=== PATIENT | female | born 2000 | race Caucasian/White ===

== ENCOUNTER → 2019-07-04 09:01 | Outpatient (BNVA) | payer MEDICAID, SELFPAY | PROVIDERS: Family Provider Nurse Practitioner Family; PCP Nurse Practitioner Family; Referring Provider Family Medicine; Visit Provider Orthopaedic Surgery | DX: M25.561 Pain in right knee (principal); G89.29 Other chronic pain | CPT/HCPCS: 73560; 73565 ==

== ENCOUNTER 2020-03-13 13:04 | Outpatient (CLI) | payer MEDICAID, SELFPAY ==
--- NOTE | 2020-03-13 13:00 | MR_ITS ---
WS: [id number] MRI RIGHT KNEE HISTORY: M25.569 Pain in unspecified knee COMPARISON: 07/04/2019 Anterior cruciate ligament: Intact. Posterior cruciate ligament: Intact. Medial collateral ligament: Intact. Posterior lateral corner structures: Intact. Medial menisci: Intact. Normal signal, size and shape. Lateral meniscus: Abnormal shape and signal in the anterior horn. Very small caliber anterior horn. Extensor mechanism: Distal quadriceps tendon and patellar tendons are intact. Fluid and soft tissue: Small amount of fluid in the suprapatellar bursa and around the condyles. Tiny amount of fluid in Sam's cyst. Osseous and articular structures: Patellofemoral compartment: Normal. Medial compartment: Normal. Lateral compartment: Normal. MR/MR knee RT wo con* [id number] IMPRESSION: 1. Small suprapatellar joint effusion. 2. Abnormal shape and signal in the anterior horn of the lateral meniscus. Due to the abnormal appearance suspect this is a torn meniscus. No meniscal fragme nt identified. The remaining menisci are negative.
== END 2020-03-13 13:05 | disposition home or self-care (01) ==
LOC: RADSHAW 13:08
PROVIDERS: PCP Physician Assistant Medical; Visit Provider Orthopaedic Surgery
DX: M25.561 Pain in right knee (principal); M25.461 Effusion, right knee
CPT/HCPCS: 73721

== ENCOUNTER → 2020-04-20 09:12 | Outpatient (BNVA) | payer MEDICAID, SELFPAY | PROVIDERS: PCP Physician Assistant Medical; Referring Provider Orthopaedic Surgery; Visit Provider Orthopaedic Surgery | DX: Z20.828 Contact with and (suspected) exposure to other viral communicable diseases (principal) | CPT/HCPCS: 87635 ==

== ENCOUNTER 2020-04-25 06:29 | Day surgery (SDC) | payer MEDICAID, SELFPAY ==
[2020-04-24 15:17] VITALS: BMI 21.6
[2020-04-25] VITALS (7 sets, daily range): BP systolic 90–119; BP diastolic 50–81; PULSE 64–85; RESP 16–18; TEMP 36.2–36.6; O2SAT 97–100
[2020-04-25 06:47] LABS: OR HCG Qualitative Urine Negative (Negative)
[2020-04-25] MEDS: sodium chloride 0.9% 1,000 ML 30 ML IV (06:59)
--- NOTE | 2020-04-25 07:45 | ANES.PREANE2 ---
Pre-Anesthetic Assessment Pre-Anesthetic Assessment: Height/Weight: Height 1.63 m Weight 57.153 kg Temp Pulse Resp BP Pulse Ox 97.6 F 81 18 119/81 97 04/25/20 06:50 04/25/20 06:50 04/25/20 06:50 04/25/20 06:50 04/25/20 06:50 Preop Diagnosis: Right lateral meniscal tear Proposed Procedure: Operation Date: 04/25/20 08:00 Proposed Procedures p Diagnostic Knee Arthroscopy 26222 S83.281D(Right) - Jethro Arce MD Was Beta Annemarie taken within 24 hours: N/A Last intake: Intake Last Liquid Date 04/24/20 Last Liquid Time 19:00 Last Solid Date 04/24/20 Last Solid Time 19:00 Social: Social History: No alcohol and No tobacco Exam: Pre-Anes Outpt Exam: alert, oriented x 3, clear to auscultation bilaterally and regular rate & rhythm Airway: Submandibular: WNL Cervical ROM: WNL MP: 2 Additional comments: poor History/ROS: No significant history except as noted Pulmonary: Pulmonary: None reported CV/HEM: CV/HEM: None reported : : None reported Hepatic: Hepatic: None reported GI: GI: GERD Metabolic: Metabolic: None reported Musc/skel: Musc/skel: None reported Neuropsych: Neuropsych: None reported Anesthetic Plan: ASA status: 1 Anesthesia: Anesthesia Evaluation and General Risk of > 500 ml blood loss (7ml/kg in children): No Meds/Allergies Current Medications: Current Medications Generic Name Dose Route Start Last Admin Trade Name Freq PRN Reason Stop Dose Admin Sodium Chloride 1,000 mls @ 30 ml s/hr 04/25/20 06:45 04/25/20 06:59 Sodium Chloride 0.9% IV 04/26/20 06:44 30 mls/hr .Q24H JESSICA Administration PFSH Anesthesia PFSH: Social History Smoking and tobacco status: never smoked Alcohol intake: never Female Reproductive History: Date of last menstrual period: 10/31/19 Data Anesthesia Other Labs: Laboratory Results - last 48 hr 04/25/20 06:45 Urine HCG, Qual Negative Cardiac Studies: No Data to Display
--- NOTE | 2020-04-25 07:53 | W.PM.OPSUD ---
Surgery/Procedure H&P Update DATE OF PROCEDURE: April 25, 2020 DATE H&P PERFORMED: 03/26/20 PREOP DIAGNOSIS: Right lateral meniscal tear PLANNED PROCEDURE: Operation Date: 04/25/20 08:00 Proposed Procedures p Diagnostic Knee Arthroscopy 92906 S83.281D(Right) - Jethro Arce MD
[2020-04-25] MEDS: morphine 4 mg/mL SDV 1 mL 8 MG IM (08:12)
--- NOTE | 2020-04-25 08:49 | SUR.PHASEI ---
pt sleeps quietly ,recieved on RA, vss sats 99% good resp effort noted RT knee dressing D/I with distal foot pink warm with strong regular pulse.
--- NOTE | 2020-04-25 08:54 | PM.OP ---
Operative Report Date of procedure: April 25, 2020 Pre-op Diagnosis: Right lateral meniscal tear Post-op diagnosis: same Post-op Findings: The patient had a complex horizontal cleavage tear of her middle third lateral meniscus Procedure Done: Partial lateral menisci Pathology: none sent Surgeon: Jethro Arce Anesthesia: General Estimated blood loss (mL): 5 Findings: The patient had a complex horizontal cleavage tear involving the middle third of the lateral meniscus. There was diminished meniscal volume consistent with a previous lateral meniscectomy. It was estimated approximately 30% of the middle and posterior third lateral meniscus remained after debridement to stable tissue the tear was a dysvascular and she was not thought to be a candidate for repair Condition: stable Disposition: PACU Procedure: The patient was taken to the operating room and given a general anesthesia. The right lower extremity was prepped and draped in the usual fashion with a tourniquet on the right thigh. The tourniquet was never inflated. The knee was infiltrated with 30 cc of 0.5% Marcaine with epi and 10 mg of morphine. A timeout was performed. The knee was entered for standard inferior medial and inferolateral portal. The diagnostic part of the arthroscopy was performed revealing only the lateral meniscal tear. Initially using an incisor shaver and later a [employer] probe unstable degenerative superior and inferior flaps were debrided back to a stable rim. This involved debridement in the middle and posterior thirds of the lateral meniscus and left approximately 30% of the meniscus remaining. The remaining knee arthroscopy is unremarkable. Knee was irrigated with saline. Portals were closed with 3-0 Prolene. Sterile dressings were applied. The patient was extubated and taken to recovery room in stable condition.
== END 2020-04-25 10:10 | disposition home or self-care (01) ==
PROVIDERS: PCP Physician Assistant Medical; Visit Provider Orthopaedic Surgery
PROC: (CPT 29870; principal; 2020-04-25 08:00)
DX: S83.281A Other tear of lateral meniscus, current injury, right knee, initial encounter (principal); X58.XXXA Exposure to other specified factors, initial encounter; K21.9 Gastro-esophageal reflux disease without esophagitis
CPT/HCPCS: 29881; 12345; 81025; 84703; J0690; J1100; J2270; J2405; J2704; J3010; J3490; J7030

== ENCOUNTER 2020-06-24 14:26 | Outpatient (CLI) | payer MEDICAID, SELFPAY ==
--- NOTE | 2020-06-24 14:45 | MR_ITS ---
WS: [id number] MRI LEFT KNEE HISTORY: M25.569 - Pain in unspecified knee COMPARISON: 06/21/2018 Anterior cruciate ligament: Intact. Posterior cruciate ligament: Intact. Medial collateral ligament: Intact. Posterior lateral corner structures: Intact. Medial menisci: Intact. Normal signal, size and shape. Lateral meniscus: Status post partial lateral meniscectomy. There is a small amount of increased sign al centrally within the posterior remaining meniscus. This does not extend completely through the men iscus and is probably intrasubstance degeneration. There is some fraying along the surfaces of the po sterior horn. No appreciable anterior horn remains. Extensor mechanism: Distal quadriceps tendon and patellar tendons are intact. Fluid and soft tissue: There is a small suprapatellar joint effusion. Very tiny amount of fluid in th e popliteal cyst. Osseous and articular structures: Patellofemoral compartment: Normal. Medial compartment: There is a very small amount of marrow edema along the lateral tibial plateau inv olving the metaphysis that was not present on the prior study. No fracture. No osteochondral lesion. Lateral compartment: Very mild narrowing of the joint space. Focal thinning of the cartilage at the m id joint space involving the femoral condyle and tibial plateau. This is new since the prior study. MR/MR knee LT wo con* [id number] IMPRESSION: 1. Small suprapatellar joint effusion. 2. Very small amount of marrow edema along the medial tibial metaphysis. No fr acture. 3. Partial lateral meniscectomy. 4. Mild fraying along the remaining posterior horn of the lateral meniscus wit h no definite tear. 5. Mild narrowing of the lateral compartment with thinning and mild loss of th e normal cartilage.
== END 2020-06-24 14:27 | disposition home or self-care (01) ==
PROVIDERS: PCP Physician Assistant Medical; Visit Provider Orthopaedic Surgery
DX: M25.562 Pain in left knee (principal); R60.0 Localized edema; M25.462 Effusion, left knee
CPT/HCPCS: 73721

== ENCOUNTER 2020-09-19 21:00 | Emergency (ER) | payer MEDICAID, SELFPAY ==
[2020-09-19 21:25] VITALS: BP 119/78; PULSE 106; RESP 16; TEMP 36.9; O2SAT 98; BMI 21.6
--- NOTE | 2020-09-19 22:11 | ED_ITS ---
HPI - Abdominal Pain General: Chief Complaint: Abdominal Pain Stated Complaint: ABD PAIN Time Seen by Provider: 09/19/20 22:11 History of Present Illness: HPI narrative: Patient is a 19-year-old female comes to the ED with abdominal pain. Patient says symptoms started approximately 3 days ago. Abdominal pain is centrally located. Patient does state that she has a history of acid reflux and says just before pain started she had eaten some spicy cheese. Patient rates her abdominal pain a 10 out of 10. Patient does endorse having some increased urine frequency and urgency to go. Denies any dysuria or hematuria. Associated Symptoms: Reports heartburn; Denies chills, constipation, diarrhea, dysuria, fever(s), hematochezia, hematuria, nausea and vomiting Related Data: Date of Last Menstrual Period: 08/29/20 Review of Systems Const: Denies: fever(s), chills or fatigue Eyes: Denies: change in vision or eye discomfort ENMT: Denies: throat pain, odynophagia, nasal discharge or nasal congestion Card: Denies: chest pain, palpitations, edema, swelling of feet/ankles, dyspnea on exertion or orthopnea Resp: Denies: dyspnea, productive cough or non-productive cough GI: Reports: abdominal pain and heartburn; Denies: nausea, vomiting, diarrhea, constipation or hematochezia : Reports: urinary frequency (increase) and urinary urgency (increase); Denies: flank pain, dysuria or hematuria Musc: Denies: neck pain, back pain or extremity swelling Skin/Breast: Denies: rash or new lesions Neuro: Denies: headache(s), numbness in extremities or weakness in extremities [facility] ED PFSH: Social History Smoking and tobacco status: never smoked Alcohol intake: never Female Reproductive History: Date of last menstrual period: 08/29/20 Physical Exam Const: COMMON NORMALS: no acute distress, patient oriented x3, healthy appearing and alert GENERAL APPEARANCE: cooperative and comfortable HENMT: COMMON NORMALS: normocephalic HEAD & SCALP: normocephalic MOUTH: Normal oral and palatal mucosa present THROAT: posterior oropharynx normal and uvula midline Neck/C-Spine: COMMON NORMALS: supple GENERAL: Yes normal visual inspection Resp: COMMON NORMALS: normal respiratory effort, No retractions, No use of accessory muscles and clear to auscultation bilaterally AUSCULTATION: clear to auscultation bilaterally Cardio: COMMON NORMALS: regular rate, regular rhythm, S1 normal heart sound present, S2 normal heart sound present, No gallops present (Cardio), No clicks present (Cardio), No murmurs present (Cardio) and Peripheral pulses 2+ throughout RATE: regular rate RHYTHM: regular rhythm HEART SOUNDS: S1 normal heart sound present and S2 normal heart sound present PERIPHERAL PULSES: Peripheral pulses 2+ throughout GI: COMMON NORMALS: Normal to inspection, nondistended, normoactive bowel sounds present, Soft to palpation and no masses PALPATION: Yes Soft to palpation and Yes Tenderness to palpation present (GI) (Mild tenderness over the periumbilical region and epigastric region.) : COMMON NORMALS: Yes no CVA tenderness BLADDER/KIDNEY EXAM: Yes no CVA tenderness Back/Pelvis: COMMON NORMALS: no CVA tenderness Extremity: COMMON NORMALS: normal to inspection Neuro: COMMON NORMALS: patient oriented x3 SENSORIUM/ORIENTATION: Yes alert GAIT: Yes Normal gait present Skin: GENERAL SKIN EXAM: dry skin Course Vital Signs: Vital signs: Vital Signs Temperature 98.4 F 09/19/20 21:25 Pulse Rate 74 09/20/20 00:32 Respiratory Rate 18 09/20/20 00:32 Blood Pressure 106/59 09/20/20 00:32 Pulse Oximetry 98 09/20/20 00:32 MDM - Abdominal Pain MDM Narrative: Medical decision making narrative: Patient is a 19-year-old female comes to the ED with abdominal pain. She is also complaining of having some urine frequency and urine urgency. She denies any other symptoms. Patient appears nontoxic and in no acute distress or pain upon exam. She did have some tenderness to the epigastric region and periumbilical region of abdomen. White blood cell count 13.1 but the rest of CBC and CMP were unremarkable. hCG negative. urinalysis showed signs of UTI. Patient was given IV fluids, Zofran, morphine and GI cocktail and her symptoms greatly improved. Patient was discharged home and diagnosed with gastritis and a UTI. Patient currently takes Protonix for her acid reflux symptoms and I told her to continue taking that. I discharged her home with a prescription for Bactrim for her UTI. I told her to follow-up with her PCP in 7 to 10 days for reevaluation. Return to ED precautions given. Patient understood agree with plan. Lab Data: Attestation: I reviewed the patient's lab results. Labs: Lab Results 09/19/20 09/19/20 09/19/20 Range/Units 22:15 22:15 22:15 WBC 13.1 H (4.0-10.0) 10^3/ uL RBC 5.13 (4.1-5.3) 10^6/u L Hgb 14.2 (11.5-15.3) g/dL Hct 43.9 (37.0-47.0) % MCV 85.6 (81-99) fL MCH 27.7 L (28.0-34.0) pg MCHC 32.3 (30.0-36.0) g/dL RDW 12.7 (12.1-15.1) % Plt Count 341 (130-400) 10^3/c mm MPV 9.3 (7.4-10.4) fL Neut % (Auto) 74.6 % Lymph % (Auto) 17.4 % [place] % (Auto) 5.0 % Eos % (Auto) 2.0 % Baso % (Auto) 0.6 % Neut # (Auto) 9.74 H (1.8-7.7) 10^3/u L Lymph # (Auto) 2.3 (0.8-4.8) 10^3/u L Clarion # (Auto) 0.7 (0.2-0.9) 10^3/u L Eos # (Auto) 0.3 (0.0-0.8) 10^3/u L Baso # (Auto) 0.1 (0.0-0.1) 10^3/u L Nucleated RBC % (a uto) 0 % Nucleated RBCs # 0.0 /100WBC Sodium 136 (136-145) mmol/L Potassium 3.8 (3.5-5.1) mmol/L Chloride 102 (98-107) mmol/L Carbon Dioxide 27 (22-29) mmol/L Anion Gap 10.8 (5-19) BUN 11 (6-20) mg/dL Creatinine 0.5 (0.5-0.9) mg/dL GFR Calculation 155.7 H (90-130) mL/min Glucose 98 (65-115) mg/dL Calculated Osmolal ity 281 L (285-295) mOsm/k g Calcium 8.8 (8.5-10.5) mg/dL Total Bilirubin 0.2 (0.15-1.2) mg/dL AST 31 (0-32) U/L ALT 42 H (0-33) U/L Alkaline Phosphata se 89 (35-105) IU/L Total Protein 7.5 (6.6-8.7) g/dL Albumin 4.4 (3.5-5.2) g/dL Globulin 3.1 (1.3-4.6) g/dL Lipase 21 (13-60) U/L HCG, Qual Negative (Negative) Urine Color (Yellow) Urine Appearance (CLEAR) Urine pH (5-7) Ur Specific Gravit y (1.005-1.030) Urine Protein (Negative) Urine Glucose (UA) (Normal) Urine Ketones (Negative) Urine Blood (Negative) Urine Nitrate (Negative) Urine Bilirubin (Negative) Urine Urobilinogen (Negative) mg/dL Ur Leukocyte Mae ase (Negative) Urine RBC (0-2) /hpf Urine WBC (0-5) /hpf Ur Squamous Epith Cells (0-5) /hpf Amorphous Sediment Urine Bacteria (NONE) /hpf 09/19/20 Range/Units 22:15 WBC (4.0-10.0) 10^3/ uL RBC (4.1-5.3) 10^6/u L Hgb (11.5-15.3) g/dL Hct (37.0-47.0) % MCV (81-99) fL MCH (28.0-34.0) pg MCHC (30.0-36.0) g/dL RDW (12.1-15.1) % Plt Count (130-400) 10^3/c mm MPV (7.4-10.4) fL Neut % (Auto) % Lymph % (Auto) % Clarion % (Auto) % Eos % (Auto) % Baso % (Auto) % Neut # (Auto) (1.8-7.7) 10^3/u L Lymph # (Auto) (0.8-4.8) 10^3/u L Clarion # (Auto) (0.2-0.9) 10^3/u L Eos # (Auto) (0.0-0.8) 10^3/u L Baso # (Auto) (0.0-0.1) 10^3/u L Nucleated RBC % (a uto) % Nucleated RBCs # /100WBC Sodium (136-145) mmol/L Potassium (3.5-5.1) mmol/L Chloride (98-107) mmol/L Carbon Dioxide (22-29) mmol/L Anion Gap (5-19) BUN (6-20) mg/dL Creatinine (0.5-0.9) mg/dL GFR Calculation (90-130) mL/min Glucose (65-115) mg/dL Calculated Osmolal ity (285-295) mOsm/k g Calcium (8.5-10.5) mg/dL Total Bilirubin (0.15-1.2) mg/dL AST (0-32) U/L ALT (0-33) U/L Alkaline Phosphata se (35-105) IU/L Total Protein (6.6-8.7) g/dL Albumin (3.5-5.2) g/dL Globulin (1.3-4.6) g/dL Lipase (13-60) U/L HCG, Qual (Negative) Urine Color Yellow (Yellow) Urine Appearance Clear (CLEAR) Urine pH 5 (5-7) Ur Specific Gravit y 1.020 (1.005-1.030) Urine Protein Neg (Negative) Urine Glucose (UA) Norm (Normal) Urine Ketones Negative (Negative) Urine Blood 3+ H (Negative) Urine Nitrate Negative (Negative) Urine Bilirubin 1+ H (Negative) Urine Urobilinogen Norm (Negative) mg/dL Ur Leukocyte Mae ase Negative (Negative) Urine RBC 5-10 H (0-2) /hpf Urine WBC 40-55 H (0-5) /hpf Ur Squamous Epith Cells 10-15 H (0-5) /hpf Amorphous Sediment Not Reportable Urine Bacteria 1+ H (NONE) /hpf Imaging Data ^: CT Abd/Pel: Attestation: I personally reviewed and interpreted this imaging study as follows: Radiologist's impression: [address] [address] [address] Scan Report Signed Patient: Evelyne Biggs [id number] 2000 [id number] Age/Sex: 19 / F ADM Date: 09/19/20 Loc: ER Room/Bed: Attending Dr: Ordering Provider/Ordering MD: Miquel Leong Date of Service: 09/19/20 Procedure(s): CT abdomen pelvis w con* [id number] Accession Number(s): [id number] Report Number: [id number] PROCEDURE INFORMATION: Exam: CT Abdomen And Pelvis With Contrast Exam date and time: 09/19/2020 11:16 PM Age: 19 years old Clinical indication: Abdominal pain; Patient HX: Periumbilical pain; Additional info: Abdominal pain-periumbilical TECHNIQUE: Imaging protocol: Computed tomography of the abdomen and pelvis with contrast. Radiation optimization: All CT scans at this facility use at least one of these dose optimization techniques: automated exposure control; mA and/or kV adjustment per patient size (includes targeted exams where dose is matched to clinical indication); or iterative reconstruction. Contrast material: OMNI 300; Contrast volume: 75 ml; Contrast route: INTRAVENOUS (IV); COMPARISON: CT Abdomen/Pelvis Renal [id number] 09/29/2018 4:08 PM RADIATION DOSE METRICS: Total DLP (mGy-cm): 868.31 FINDINGS: Liver: Normal. No mass. Gallbladder and bile ducts: Normal. No calcified stones. No ductal dilation. Pancreas: Normal. No ductal dilation. Spleen: Normal. No splenomegaly. Adrenal glands: Normal. No mass. Kidneys and ureters: Normal. No hydronephrosis. Stomach and bowel: Unremarkable. No obstruction. No mucosal thickening. Appendix: The appendix is not confidently seen, but there are no secondary inflammatory changes in the right lower quadrant of the abdomen. Intraperitoneal space: Unremarkable. No free air. No significant fluid collection. Vasculature: Unremarkable. No abdominal aortic aneurysm. Lymph nodes: Unremarkable. No enlarged lymph nodes. Urinary bladder: Unremarkable as visualized. Reproductive: Unremarkable as visualized. Bones/joints: Unremarkable. No acute fracture. Soft tissues: Unremarkable. CT/CT abdomen pelvis w con* [id number] IMPRESSION: 1. No acute findings. 2. The appendix is not confidently seen, but there are no secondary inflammatory soft tissue changes in the right lower quadrant the abdomen. Radiation Dose CTDIVOL = (mGy): DLP = 868.31 (mGy-cm) Dictated By: Matt Tarango Signed By: Matt Tarango Signed Date/Time: 09/19/202358 DD/ 56 Discharge Plan Discharge Patient Disposition: Home Clinical Impression: Gastritis Qualifiers: Gastritis type: unspecified gastritis Chronicity: acute Gastritis bleeding: without bleeding Qualified Code(s): K29.00 - Acute gastritis without bleeding UTI (urinary tract infection) Qualifiers: Urinary tract infection type: acute cystitis Hematuria presence: with hematuria Qualified Code(s): N30.01 - Acute cystitis with hematuria Condition: Stable Prescriptions: New Bactrim DS 800-160 mg tablet 1 tab PO BID 5 Days Qty: 10 RF: 0 No Action pantoprazole [Protonix] 40 mg tablet,delayed release (DR/EC) 40 mg PO BID Qty: 60 RF: 0 hydrocodone-acetaminophen 5-325 mg tablet 1 tab PO Q4H Qty: 30 RF: 0 Discharge Orders: Discharge ED (Routine); Ordered 09/20/20 Ordered By: Miquel Leong Referrals: Delbert Luther [Primary Care Provider] - Discharge Diet: Regular Discharge Activity: Resume usual activity Patient Instructions: Gastritis (ED), Urinary Tract Infection in Women (ED) Activity Restrictions/Additional Instructions: Follow-up with medical provider as directed in 7 to 10 days for reevaluation. Take medications as prescribed. Return to the ER or your medical provider if condition worsens. Please read and understand discharge instructions. Thank you for choosing [facility] for your healthcare needs today. Please realize this is an emergency room and that we are providing you with a medical screening exam and this may not be complete and all inclusive of all the testing and or work up that you may need to determine your ailment or severity of your illness. It is very important that you follow up as instructed or that you return to the Emergency Department should you have concerns or if your condition changes or worsens in any way. Coding Level of Care Code ED Organisation And Methods Analyst for Darinel Fwana Exam Comprehensive
[2020-09-19 22:43] LABS: Basophils # 0.1 10^3/uL (0.0-0.1); Basophils % 0.6 %; Eosinophils # 0.3 10^3/uL (0.0-0.8); Hematocrit 43.9 % (37.0-47.0); Hemoglobin 14.2 g/dL (11.5-15.3); Lymphocytes # 2.3 10^3/uL (0.8-4.8); Lymphocytes % 17.4 %; Mean Corpuscular HGB Conc 32.3 g/dL (30.0-36.0); Mean Corpuscular Hemoglobin 27.7 pg (28.0-34.0); Mean Corpuscular Volume 85.6 fL (81-99); Mean Platelet Volume 9.3 fL (7.4-10.4); Monocytes # 0.7 10^3/uL (0.2-0.9); Neutrophils # 9.74 10^3/uL (1.8-7.7); Neutrophils % 74.6 %; Nucleated Red Blood Cells % 0 %; Platelet Count 341 10^3/cmm (130-400); Red Blood Count 5.13 10^6/uL (4.1-5.3); Red Cell Distribution Width 12.7 % (12.1-15.1); White Blood Count 13.1 10^3/uL (4.0-10.0)
--- NOTE | 2020-09-19 22:50 | CTR_ITS ---
PROCEDURE INFORMATION: Exam: CT Abdomen And Pelvis With Contrast Exam date and time: 09/19/2020 11:16 PM Age: 19 years old Clinical indication: Abdominal pain; Patient HX: Periumbilical pain; Additional info: Abdominal pain-periumbilical TECHNIQUE: Imaging protocol: Computed tomography of the abdomen and pelvis with contrast. Radiation optimization: All CT scans at this facility use at least one of these dose optimization techniques: automated exposure control; mA and/or kV adjustment per patient size (includes targeted exams where dose is matched to clinical indication); or iterative reconstruction. Contrast material: OMNI 300; Contrast volume: 75 ml; Contrast route: INTRAVENOUS (IV); COMPARISON: CT Abdomen/Pelvis Renal [id number] 09/29/2018 4:08 PM RADIATION DOSE METRICS: Total DLP (mGy-cm): 868.31 FINDINGS: Liver: Normal. No mass. Gallbladder and bile ducts: Normal. No calcified stones. No ductal dilation. Pancreas: Normal. No ductal dilation. Spleen: Normal. No splenomegaly. Adrenal glands: Normal. No mass. Kidneys and ureters: Normal. No hydronephrosis. Stomach and bowel: Unremarkable. No obstruction. No mucosal thickening. Appendix: The appendix is not confidently seen, but there are no secondary inflammatory changes in the right lower quadrant of the abdomen. Intraperitoneal space: Unremarkable. No free air. No significant fluid collection. Vasculature: Unremarkable. No abdominal aortic aneurysm. Lymph nodes: Unremarkable. No enlarged lymph nodes. Urinary bladder: Unremarkable as visualized. Reproductive: Unremarkable as visualized. Bones/joints: Unremarkable. No acute fracture. Soft tissues: Unremarkable. CT/CT abdomen pelvis w con* [id number] IMPRESSION: 1. No acute findings. 2. The appendix is not confidently seen, but there are no secondary inflammatory soft tissue changes in the right lower quadrant the abdomen. Radiation Dose CTDIVOL = (mGy): DLP = 868.31 (mGy-cm)
[2020-09-19 22:52] LABS: Alanine Aminotransferase 42 U/L (0-33); Albumin Level 4.4 g/dL (3.5-5.2); Alkaline Phosphatase 89 IU/L (35-105); Anion Gap 10.8 (5-19); Aspartate Amino Transferase 31 U/L (0-32); Blood Urea Nitrogen 11 mg/dL (6-20); Calcium 8.8 mg/dL (8.5-10.5); Carbon Dioxide 27 mmol/L (22-29); Chloride 102 mmol/L (98-107); Globulin 3.1 g/dL (1.3-4.6); Glomerular Filtration Rate 155.7 mL/min (90-130); Glucose 98 mg/dL (65-115); Lipase 21 U/L (13-60); Osmolality Calculated 281 mOsm/kg (285-295); Potassium 3.8 mmol/L (3.5-5.1); Sodium 136 mmol/L (136-145); Total Bilirubin 0.2 mg/dL (0.15-1.2); Total Protein 7.5 g/dL (6.6-8.7)
[2020-09-19 23:08] VITALS: RESP 18; O2SAT 97
[2020-09-19] MEDS: ondansetron 2 mg/ML SDV 2 mL 4 MG IVP (23:08)
[2020-09-19] MEDS: morphine 4 mg/mL SDV 1 mL IVP (23:08)
[2020-09-19] MEDS: sodium chloride 0.9% 500 ML 999 ML IV (23:08)
[2020-09-19 23:13] LABS: Bacteria Urine 1+ /hpf; Bilirubin Urine 1+ (Negative); Blood Urine 3+ (Negative); Glucose Urine UA Norm (Normal); HCG, Serum Qual Negative (Negative); Ketones Urine Negative (Negative); Leukocyte Esterase Urine Negative (Negative); Nitrate Urine Negative (Negative); Protein Urine Neg (Negative); Urine Appearance Clear (CLEAR); Urine Color Yellow (Yellow); Urobilinogen Urine Norm (Negative); WBC Urine 40-55 /hpf (0-5); pH Urine 5 (5-7)
[2020-09-19 23:14] LABS: Add Urine Culture? Yes
[2020-09-19] MEDS: iohexol 300 mg/mL 100 mL Btl IV (23:31)
[2020-09-20] MEDS: lidocaine 2% viscous 15 ML, aluminum-mag hydrox-simethicon 30 ML, sucralfate oral liq 1 GM PO (00:19)
[2020-09-20 00:32] VITALS: BP 106/59; PULSE 74; RESP 18; O2SAT 98
== END 2020-09-20 00:33 | disposition home or self-care (01) ==
PROVIDERS: Emergency Provider Physician Assistant; PCP Physician Assistant Medical
DX: K29.00 Acute gastritis without bleeding (principal); N30.01 Acute cystitis with hematuria
CPT/HCPCS: 74177; 80053; 81001; 83690; 84703; 85025; 87086; 96374; 96375; 99283; J2270; J2405; J7040; Q9967

== ENCOUNTER 2020-09-20 22:08 | Emergency (ER) | payer MEDICAID, SELFPAY ==
[2020-09-20 22:14] VITALS: BP 110/76; PULSE 93; RESP 16; TEMP 36.6; O2SAT 98; BMI 21.6
[2020-09-20 22:51] VITALS: BP 126/83; PULSE 122; RESP 16; O2SAT 97
--- NOTE | 2020-09-20 22:54 | W.ED.ABDPA2 ---
HPI - Abdominal Pain General: Chief Complaint: Abdominal Pain Stated Complaint: abd pain/seen yesterday says pain is worsening Time Seen by Provider: 09/20/20 22:27 History of Present Illness: HPI narrative: 19-year-old female, evidently with a history of reflux. She presented yesterday with epigastric abdominal pain. She represents today for the same complaint. She was diagnosed with gastritis and a urinary tract infection yesterday. She was given antibiotics, which she has taken. She says it does not hurt to pee, so I do not think it is a UTI . The pain became worse today, so she decided to come in for reevaluation. No fever, no vomiting, no diarrhea. No blood in the stool. MD elicited complaint: abdominal pain Pertinent past history: gastritis Onset (ago): day(s) Pain Consistency: constant Location: Epigastric Severity: moderate Quality: stabbing Radiation: none Migration to: no migration Exacerbating factors: nothing Relieving factors: nothing Associated Symptoms: Reports dyspepsia and nausea; Denies change in stool character, diarrhea, dysuria, fever(s) and vomiting Related Data: Date of Last Menstrual Period: 08/29/20 Review of Systems Const: Denies: fever(s) Eyes: Denies: change in vision Card: Denies: chest pain Resp: Denies: dyspnea or productive cough GI: Reports: nausea; Denies: vomiting, diarrhea or change in stool character : Denies: dysuria Neuro: Denies: confusion PFS ED PFSH: Social History Smoking and tobacco status: never smoked Alcohol intake: never Female Reproductive History: Date of last menstrual period: 08/29/20 Physical Exam Const: GENERAL APPEARANCE: well developed ORIENTATION/CONSCIOUSNESS: Yes oriented to person, Yes oriented to place and Yes oriented to time HENMT: COMMON NORMALS: normocephalic, external ears normal and Normal external nose present HEAD & SCALP: normocephalic FACE & SINUS: normal facial exam NOSE: Normal external nose present and No nasal discharge present EXTERNAL EAR: Yes external ears normal Eye: COMMON NORMALS: Equal, round and reactive pupils present, EOMs intact bilaterally and conjunctivae normal EYELID: eyelids normal CONJUNCTIVA: Yes conjunctivae normal PUPIL: Yes Equal, round and reactive pupils present Neck/C-Spine: GENERAL: No tracheal deviation Chest: COMMONS NORMALS: normal inspection of the chest CHEST: No tenderness Resp: COMMON NORMALS: clear to auscultation bilaterally EFFORT & INSPECTION: No tachypneic, No respiratory distress, No retractions, No uses accessory muscles and No tracheal deviation AUSCULTATION: clear to auscultation bilaterally, no rhonchi, no wheezes and lung sounds not diminished Cardio: COMMON NORMALS: regular rate and regular rhythm RATE: regular rate RHYTHM: regular rhythm HEART SOUNDS: no murmurs PERIPHERAL PULSES: radial pulses present GI: INSPECTION: No abdominal distension AUSCULTATION: No Hyperactive bowel sounds present and No Hypoactive bowel sounds present PALPATION: Yes Tenderness to palpation present (GI) (epigastric), Yes Guarding due to palpation present (GI) and No Rigid due to palpation PERCUSSION: no dullness to percussion and no tympanic to percussion Neuro: SENSORIUM/ORIENTATION: Yes oriented to person, Yes oriented to place and Yes oriented to time Psych: COMMON NORMALS: mental status grossly normal Skin: COMMON NORMALS: no rashes or lesions noted GENERAL SKIN EXAM: no rashes or lesions noted Course Vital Signs: Vital signs: Vital Signs Temperature 97.8 F 09/21/20 00:44 Pulse Rate 84 09/21/20 00:44 Respiratory Rate 14 09/21/20 00:44 Blood Pressure 113/76 09/21/20 00:44 Pulse Oximetry 97 09/21/20 00:44 MDM - Abdominal Pain MDM Narrative: Medical decision making narrative: 19-year-old female seen yesterday for abdominal pain. CT was negative at that point. Her labs were benign, save a white blood cell count of 13. She presents again tonight with the same complaint. Again, GI cocktail helped her pain. I agree that most of her pain is likely gastritis and not from her UTI. She will continue her antibiotics. She will take Carafate along with her Protonix for gastritis. Follow-up as an outpatient. Discharge Plan Discharge Patient Disposition: Home Clinical Impression: Gastritis Qualifiers: Gastritis type: other gastritis Chronicity: acute Gastritis bleeding: without bleeding Qualified Code(s): K29.00 - Acute gastritis without bleeding Condition: Stable Prescriptions: New Carafate 1 gram tablet 1 g PO Q6H 28 Days Qty: 112 RF: 0 No Action pantoprazole [Protonix] 40 mg tablet,delayed release (DR/EC) 40 mg PO BID Qty: 60 RF: 0 hydrocodone-acetaminophen 5-325 mg tablet 1 tab PO Q4H Qty: 30 RF: 0 Bactrim DS 800-160 mg tablet 1 tab PO BID 5 Days Qty: 10 RF: 0 Discharge Orders: Discharge ED (Routine); Ordered 09/21/20 Ordered By: Tristen Rao Referrals: Delbert Luther [Primary Care Provider] - 4-7 days Discharge Diet: Usual diet Discharge Activity: Resume usual activity Patient Instructions: Opioid Safety Activity Restrictions/Additional Instructions: Return for fever greater than 100, vomiting liquids or medications, other concerning symptoms. Take the medication as directed. Take it 30 minutes before mealtime for best effect. Coding Level of Care Code ED Pipeline Operator for Darinel Fwd Exam Comprehensive
[2020-09-20] MEDS: lidocaine 2% viscous 15 ML, aluminum-mag hydrox-simethicon 30 ML, sucralfate oral liq 1 GM PO (23:13)
[2020-09-20 23:21] VITALS: BP 113/73; PULSE 93; RESP 15; O2SAT 98
--- NOTE | 2020-09-20 23:35 | ECG_ITS ---
[facility] Test Date: 2020-09-20 Pat Name: Evelyne Biggs Department: Room: Gender: Female Pretzel Cooker: : 2000 Requested By: Tristen Lafleur Order Number: [id number] Huang MD: Margarita Mercado M.D. Measurements Intervals [place] Rate: 102 P: 55 CA: 111 QRS: 26 QRSD: 90 T: 9 QT: 341 QTc: 446 Interpretive Statements SINUS TACHYCARDIA WITH SHORT CA INTERVAL POSSIBLE LEFT ATRIAL ENLARGEMENT [-0.1mV P WAVE IN V1/V2] POSSIBLE RIGHT VENTRICULAR CONDUCTION DELAY [RSR (QR) IN V1/V2] ABNORMAL RHYTHM ECG Compared to ECG 09/10/2018 18:20:03 Sinus rhythm no longer present Incomplete right bundle-branch block no longer present Electronically Signed On 09-22-2020 12:20:59 CDT by Margarita Mercado M.D. [id number] f
[2020-09-21] VITALS: BP 114/82; PULSE 89; RESP 15; O2SAT 97
[2020-09-21 00:44] VITALS: BP 113/76; PULSE 84; RESP 14; TEMP 36.6; O2SAT 97
== END 2020-09-21 00:44 | disposition home or self-care (01) ==
PROVIDERS: Emergency Provider Emergency Medicine; PCP Physician Assistant Medical
DX: K29.00 Acute gastritis without bleeding (principal)
CPT/HCPCS: 93005; 99283

== ENCOUNTER 2020-10-22 13:33 | Outpatient (CLI) | payer MEDICAID, SELFPAY ==
--- NOTE | 2020-10-22 13:45 | MR_ITS ---
WS: [id number] MRI LEFT KNEE NONCONTRAST TECHNIQUE: Axial PD, coronal PD fat sat, coronal PD, sagittal PD, and sagittal PD fat-sat images obta ined. CLINICAL INFORMATION: PAIN IN LEFT KNEE COMPARISON: MRI June 24, 2020 FINDINGS: Distal quadriceps and patella tendons are intact. Small suprapatellar effusion. Normal ACL and PCL. Normal medial meniscus. Prior postoperative changes partial meniscectomy lateral meniscus with blunti ng of the anterior horn unchanged in appearance. Normal patella cartilage. No subchondral edema. Normal medial and lateral patellar retinaculum. Lauren l popliteal fossa. Normal medial and lateral collateral ligaments. Previously described edema in the tibial metaphysis has resolved. MR/MR knee LT wo con* [id number] IMPRESSION: 1. Small suprapatellar effusion. 2. Normal ACL and PCL. 3. Prior postoperative changes partial lateral meniscectomy with blunting of t he anterior horn is unchanged. 4. Slightly hypertrophic patella. Normal patella cartilage. 5. Normal medial meniscus. 6. No other significant changes from previous. Outbridge grading: grade I: focal areas of hyperintensity with normal contour
== END 2020-10-22 13:34 | disposition home or self-care (01) ==
PROVIDERS: PCP Physician Assistant Medical; Visit Provider Physician Assistant Medical
DX: M25.562 Pain in left knee (principal); M25.462 Effusion, left knee
CPT/HCPCS: 73721

== ENCOUNTER → 2021-02-10 10:52 | Outpatient (BNVA) | payer MEDICAID, SELFPAY | PROVIDERS: PCP Physician Assistant Medical; Visit Provider Obstetrics & Gynecology | DX: Z36.87 Encounter for antenatal screening for uncertain dates (principal) | CPT/HCPCS: 76815 ==

== ENCOUNTER → 2021-07-18 08:16 | Outpatient (BNVA) | payer MEDICAID, SELFPAY | PROVIDERS: PCP Physician Assistant Medical; Referring Provider Obstetrics & Gynecology; Visit Provider Obstetrics & Gynecology | DX: Z34.80 Encounter for supervision of other normal pregnancy, unspecified trimester (principal) | CPT/HCPCS: 81000 ==

== ENCOUNTER → 2021-08-01 13:09 | Outpatient (BNVA) | payer MEDICAID, SELFPAY | PROVIDERS: PCP Physician Assistant; Visit Provider Obstetrics & Gynecology | DX: Z34.93 Encounter for supervision of normal pregnancy, unspecified, third trimester (principal) | CPT/HCPCS: 81000; 87086; 87635 ==

== ENCOUNTER 2021-08-07 01:00 | Inpatient (IN) | payer MEDICAID, SELFPAY ==
[2021-08-07] VITALS (65 sets, daily range): BP systolic 110–168; BP diastolic 66–99; PULSE 75–137; RESP 14–18; TEMP 36–36.9; O2SAT 94–98; BMI 29.0
[2021-08-07] MEDS: dextrose 5%-lactated ringers 1,000 ML 125 ML IV (01:30)
[2021-08-07] MEDS: ampicillin 2,000 MG in sodium chloride 0.9% (plus) 50 ML 100 MG IV (01:31)
[2021-08-07] MEDS: fentaNYL 50 mcg/mL INJ 2mL IVP (01:39)
[2021-08-07 01:43] LABS: Basophils % 0.3 %; Eosinophils # 0.1 10^3/uL (0.0-0.8); Eosinophils % 0.5 %; Hematocrit 34.4 % (37.0-47.0); Hemoglobin 11.2 g/dL (11.5-15.3); Lymphocytes # 1.5 10^3/uL (0.8-4.8); Lymphocytes % 12.2 %; Mean Corpuscular HGB Conc 32.6 g/dL (30.0-36.0); Mean Corpuscular Hemoglobin 26.4 pg (28.0-34.0); Mean Corpuscular Volume 81.1 fl (81-99); Monocytes # 0.9 10^3/uL (0.2-0.9); Monocytes % 7.3 %; Neutrophils % 79.3 %; Nucleated Red Blood Cells % 0 %; Platelet Count 236 10^3/cmm (130-400); Red Blood Count 4.24 10^6/uL (4.1-5.3); Red Cell Distribution Width 13.6 % (12.1-15.1)
[2021-08-07] MEDS: ampicillin 1,000 MG in sodium chloride 0.9% (plus) 50 ML 100 MG IV (04:39)
--- NOTE | 2021-08-07 05:36 | PM.OPHPUD ---
Labor & Delivery H&P Update Date of Procedure: August 07, 2021 Date H&P Performed: 03/26/20 H&P update information: I have reviewed H&P completed within last 30 days, I have examined patient prior to procedure and Changes to prior documentation as noted here (cervix: /+1/vx/AROM-clear) Admission Diagnosis: Preop diagnosis: Right lateral meniscal tear
--- NOTE | 2021-08-07 05:38 | PM.PN ---
Subjective Subjective: Mrs. Biggs 20-year-old female G1, P0 with an EGA at 40 +6 weeks. Active labor Vitals/I&O/Wt Last Vital Signs Temp 97.5 F L 08/07/21 04:43 Pulse 114 H 08/07/21 05:35 Resp 15 08/07/21 01:39 BP 149/76 08/07/21 05:35 Weight last 48 hrs Weight 72.121 kg Physical Exam Narrative: GA: Alert and oriented ?3. Lungs: Clear to auscultation bilaterally. Heart: Regular rhythm and rate. Abdomen: Gravid, full the height equals dates, nontender. CURB BUILDER: SVE; dilation: 9 cm, effacement: 100%, station: +1, presentation: VX, membranes: AROM: clear. Extremities: no edema, no cyanosis, no calves pain. heart tracing: Basal rate: 140's bpm, Variability: moderate, Accelerations: present, Decelerations: absent, Contraction: q3min. Data : 08/07/21 01:25 A&P Assessment and plan (1) Active labor at term: Mrs. Biggs 20-year-old female G1, P0 at 40 +6 weeks. Came to labor and delivery with chief complaint of contractions, which cervical changes at admission cervix was dilated to 4 cm she progressed to 6 cm. She declined epidural, progressing rapidly without epidural. heart tracing category 1. scalp stimulation reassuring. Status: Acute Plan Anticipate vaginal delivery. Continue with continuous monitoring. Attestations Medical Necessity Statement*: In my professional opinion per admitting diagnosis. Coding Level of Care Code Acute Can Machine Operator for martha Fwd Diagnoses Active labor at term
--- NOTE | 2021-08-07 08:28 | P.PCNOB_ITS ---
Delivery Note: Date of delivery: August 07, 2021 Pre-delivery diagnoses: Term Post-delivery diagnoses: Term delivered Procedure: Spontaneous vaginal delivery Delivering Physician: Casper Hart MD Estimated blood loss (mL): 300 Findings: Term female infant Apgars 8/9 weight 3510 g. Nuchal cord x1. No lacerations. Pre-Delivery Course: The patient is a 20yo at 40+6weeks EGA who has been receiving care from [facility]. She has been experiencing painful uterine contractions for the past 4 hours. The contractions are occurring at 4 minute intervals with approximately 30 second duration. She continues to feel movement between the contractions. She denies vaginal bleeding or rupture of membranes. unknown LMP of, ELVA of 08/01/2021 based on second trimester ultrasound CC: Onset of labor at term. HPI: Received appropriate care. She was a transfer patient from [facility]. Refers she has been taking vitamins since the start of care. labs have all been normal, including negative for HIV. She was found to positive for Group B Strep on a UA and from screening at 36 weeks. She has gained approximately 30 lbs throughout the . She denies a history of HTN during . Glucose tolerance screening for gestational diabetes was negative. Delivery: The patient was noted to be complete and pushing, so was placed in the dorsal lithotomy position, prepped and draped in the usual sterile fashion for a vaginal delivery. Pt. Noted to have epidural anesthesia. At 0817 the patient delivered a viable at 40 weeks +6 days female weighing 3510g with scores of 8and 9 at one and five minutes, respectively. The vertex was delivered spontaneously over intact perineum. The patient was asked to push and the head delivered spontaneously in the LEONIE position, over an intact perineum. A nuchal cord was checked and 1 noted, and relieved around head as necessary. The anterior shoulder delivered easily and the posterior shoulder followed. The remainder of the was easily delivered and the oropharynx and nasopharynx was bulb suctioned. The was noted to have spontaneous cry and spontaneous movement of all four extremities. The cord was clamped x 2 and cut and noted to have 2 arteries and one vein. The infant was passed to the mother's abdomen where nursing personnel were in attendance. Cord blood sample was then obtained. The placenta delivered intact spontaneously and the uterus was explored. 20 units of Pitocin was placed in the IV bag to firm the uterus. Examination of the cervix and vaginal vault did not reveal any lacerations. A vaginal pack was then placed. Examination of the perineum showed no lacerations. The vaginal pack was then removed. The patient tolerated this procedure well, and recovered in L&D with her [or note if infant taken to NICU]. All sponge and needle counts were correct. History History History 1 Term 0 Miscarriages/Ectopic 0 0 Living Children 0 Coding Level of Care Code Acute Supervisor Fabrication And Assembly for Chg Fwd
[2021-08-07] MEDS: lidocaine 2% INJ 20 mL INJECTION ×2 (08:43→08:44)
[2021-08-07] MEDS: docusate sodium 100 mg Capsule PO ×2 (10:21→18:37)
[2021-08-07] MEDS: prenatal vitamin Capsule 1 CAP PO (10:21)
[2021-08-07] MEDS: ibuprofen 800 mg tablet PO ×3 (10:21→21:25)
--- NOTE | 2021-08-07 10:26 | PC.NURSE ---
pt up to bathroom without assistance. void well. educated/demonstrated berna care. pad and gown changed. pt back to bed. sandwich and drinks given.
[2021-08-07 20:51] LABS: Hematocrit 31.8 % (37.0-47.0); Hemoglobin 10.2 g/dL (11.5-15.3); Mean Corpuscular HGB Conc 32.1 g/dL (30.0-36.0); Mean Corpuscular Volume 81.1 fl (81-99); Mean Platelet Volume 11.1 fL (7.4-10.4); Platelet Count 229 10^3/cmm (130-400); Red Blood Count 3.92 10^6/uL (4.1-5.3); Red Cell Distribution Width 13.8 % (12.1-15.1); White Blood Count 14.8 10^3/uL (4.0-10.0)
--- NOTE | 2021-08-08 02:29 | PC.NURSE ---
woke patient as her had not been fed since 2229. educated on the need to feed infant every 2-3 hours around the clock.
[2021-08-08 02:30] VITALS: BP 116/80; PULSE 103; RESP 16; O2SAT 97
[2021-08-08 08:30] VITALS: BP 104/73; PULSE 96; RESP 16; TEMP 36.9; O2SAT 96
[2021-08-08] MEDS: docusate sodium 100 mg Capsule PO ×2 (10:19→17:24)
[2021-08-08] MEDS: prenatal vitamin Capsule 1 CAP PO (10:19)
[2021-08-08] MEDS: ibuprofen 800 mg tablet PO ×2 (10:19→17:25)
--- NOTE | 2021-08-08 12:02 | P.DS_ITS ---
Discharge Providers ONLINE CONTENT DEVELOPER Date of Admission: 08/07/21 01:00 Date of Discharge: 08/08/21 Attending Provider at Admission: Casper Hart MD Attending Provider at Discharge: Casper Hart MD Primary Care Provider: Una Cook Diagnoses at Discharge Discharge Diagnosis (1) Term delivered: Status: Acute Reason for Visit Reason for Visit: contractions Brief History: The patient is a 20yo at 40+6weeks EGA who has been receiving care from [facility]. She has been experiencing painful uterine contractions for the past 4 hours. The contractions are occurring at 4 minute intervals with approximately 30 second duration. She continues to feel movement between the contractions. She denies vaginal bleeding or rupture of membranes. unknown LMP of, ELVA of 08/01/2021 based on second trimester ultrasound CC: Onset of labor at term. HPI: Received appropriate care. She was a transfer patient from [facility]. Refers she has been taking vitamins since the start of care. labs have all been normal, including negative for HIV. She was found to positive for Group B Strep on a UA and from screening at 36 weeks. She has gained approximately 30 lbs throughout the . She denies a history of HTN during . Glucose tolerance screening for gestational diabetes was negative. Hospital Course Hospital Course Mrs. Nino 20-year-old female G1, P0 came to the labor and delivery complaining of contractions at an estimated gestational age of 40 weeks 5 days. She was found to be in active labor. She progressed to had a spontaneous vaginal delivery without complication. She delivered and a term female , Apgars 8/9, weight 3510 g with 1 nuchal cord. observation was uneventful. Tolerating diet well. Ambulating without difficulty. Counseled regarding breast-feeding. Information Peripartum Data: Delivery Method: Vaginal Physical Exam Narrative: GA; alert and oriented x 3 HEENT: normal Breasts: engorged Nipples - skin intact Lungs; clear to auscultation Heart: regular rhythm, no murmurs. Abd: Appropriately tender. BS+. Uterine fundus below umbilicus. No Fundal Tenderness. Perineum: normal lochia. Extremities: no edema, no cyanosis, no tenderness. History History History 1 Term 0 Miscarriages/Ectopic 0 0 Living Children 0 Discharge Data Studies Completed and Pending Laboratory Results WBC 14.8 10^3/uL (4.0-10.0) H 08/07/21 20:44 RBC 3.92 10^6/uL (4.1-5.3) L 08/07/21 20:44 Hgb 10.2 g/dL (11.5-15.3) L 08/07/21 20:44 Hct 31.8 % (37.0-47.0) L 08/07/21 20:44 MCV 81.1 fl (81-99) 08/07/21 20:44 MCH 26.0 pg (28.0-34.0) L 08/07/21 20:44 MCHC 32.1 g/dL (30.0-36.0) 08/07/21 20:44 RDW 13.8 % (12.1-15.1) 08/07/21 20:44 Plt Count 229 10^3/cmm (130-400) 08/07/21 20:44 MPV 11.1 fL (7.4-10.4) H 08/07/21 20:44 Neut % (Auto) 79.3 % 08/07/21 01:25 Lymph % (Auto) 12.2 % 08/07/21 01:25 [place] % (Auto) 7.3 % 08/07/21 01:25 Eos % (Auto) 0.5 % 08/07/21 01:25 Baso % (Auto) 0.3 % 08/07/21 01:25 Neut # (Auto) 9.50 10^3/uL (1.8-7.7) H 08/07/21 01:25 Lymph # (Auto) 1.5 10^3/uL (0.8-4.8) 08/07/21 01:25 [place] # (Auto) 0.9 10^3/uL (0.2-0.9) 08/07/21 01:25 Eos # (Auto) 0.1 10^3/uL (0.0-0.8) 08/07/21 01:25 Baso # (Auto) 0.0 10^3/uL (0.0-0.1) 08/07/21 01:25 Nucleated RBC % (auto) 0 % 08/07/21 01:25 Nucleated RBCs # 0.0 /100WBC 08/07/21 01:25 Vitals Last Vital Signs Temp 98.4 F 08/08/21 08:30 Pulse 96 08/08/21 08:30 Resp 16 08/08/21 08:30 BP 104/73 08/08/21 08:30 Pulse Ox 96 08/08/21 08:30 Discharge Plan Discharge Patient Disposition: Home Condition: Stable Prescriptions: New ibuprofen 800 mg tablet 800 mg PO TID PRN (Reason: pain) Qty: 60 0RF Iron (ferrous sulfate) 325 mg (65 mg iron) tablet 325 mg PO BID Qty: 60 0RF Colace 100 mg capsule 100 mg PO BID Qty: 60 0RF acetaminophen 325 mg capsule 325 mg PO Q4H PRN (Reason: fever or pain) Qty: 60 0RF Continued [id number] 1 mg tablet 1 tab PO DAILY 0RF Discharge Orders: Discharge Order (Routine); Ordered 08/08/21 Ordered By: Casper Hart Referrals: Casper Hart MD [Physician] - 6 Weeks Discharge Diet: Regular Discharge Activity: Limit activity as instructed Patient Instructions: Depression (DC), Bleeding (DC), Preeclampsia and Eclampsia After Delivery (GEN), OB Discharge Report, OB Food/Drug Interaction Guide, OB Care at Home, Opioid Safety, OB Va ginal Deliveries - [facility] Activity Restrictions/Additional Instructions: 1. Please call [facility] on next working day to make your postpaartum appointment in 6 weeks. 2. Please stay home until you come back to the clinic on first post-operative check up. 3. Please follow instructions on your medications CAREFULLY. 4. If you have abdominal incision, do not cover it unless dressing is necessary because of drainage. OK to shower, but avoid bath. Leave steri-strips until they fall off. If they are still on one week after surgery, you may remove them. 5. If you had vaginal surgery or vaginal repair, Dr. Hart may instruct you to take SITZ bath. 6. Yellow, blood tinged odorous vaginal discharge is usually normal after hysterectomy or vaginal surgeries. 7. No sexual intercourse, tampons, or douches until you are completely released from the post-operative care. 8. Avoid constipation by eating right and maybe using some Metamucil or Milk of Magnesia. 9. All prescription refills are given during the working hours. Please do no wait till it runs out. Call the clinic at [phone] before your medication runs out. The clinic will get in touch with your doctor to prescribe medications if necessary. 10. Please remain within 40 mile radius from our hospital because emergencies do happen now and then during the post-operative period. 11. If you have stairs at home, take one step at a time slowly and minimize the number of trips. It helps to stay in one floor for the next few days. No lifting except what you can lift by one hand until you are released from the post-operative care. 12. Driving is discouraged until you are well healed. It may be 3-4 weeks before you feel strong enough to drive. You should be able to turn and look through the rear window without pain and you should be able to push the brake pedal very hard without pain before you drive. No fast rules, but SAFETY should be your primary concern. DO NOT drive if you are on sedating medications such as narcotics. 13. Call the clinic (during working hours) to make urgent appointment or go to the Emergency room, if any of the following occurs: i. Vaginal bleeding becomes heavy, more than a period. ii. Incision becomes red and sore, or drains pus. iii. Your temperature is over 100.4 or you have chill. iv. IV site becomes red and swollen (a little ``knot?? is usually OK) v. Persistent nausea and vomiting vi. Persistent constipation or diarrhea vii. Rash or allergic reaction to medications. Discharge Attestations ONLINE CONTENT DEVELOPER Time Spent in Discharge Care*: greater than 30 min Coding Level of Care Code Acute Remote Operations Producer for Chg Fwd Diagnoses Term delivered O80
[2021-08-08] MEDS: measles,mumps,rubella pf Vial (w/diluent) 0.5 ML SUBCUT (17:25)
[2021-08-08 17:30] VITALS: BP 125/88; PULSE 91; RESP 16; TEMP 36.9; O2SAT 98
== END 2021-08-08 17:30 | disposition home or self-care (01) | DRG 807 ==
PROVIDERS: Admitting Provider Obstetrics & Gynecology; PCP Physician Assistant; Visit Provider Obstetrics & Gynecology
DX: O98.82 Other maternal infectious and parasitic diseases complicating childbirth (principal); Z37.0 Single live birth; B95.1 Streptococcus, group B, as the cause of diseases classified elsewhere; O69.81X0 Labor and delivery complicated by cord around neck, without compression, not applicable or unspecified; Z3A.40 40 weeks gestation of pregnancy
CPT/HCPCS: 36415; 59025; 59409; 85025; 85027; 90707; 96372; 99211; J0290; J3010

== ENCOUNTER → 2022-01-07 13:38 | Outpatient (BNVA) | payer MEDICAID, SELFPAY | PROVIDERS: PCP Physician Assistant; Visit Provider Orthopaedic Surgery | DX: M25.561 Pain in right knee (principal); M25.562 Pain in left knee | CPT/HCPCS: 73560; 73565; 99213 ==

== ENCOUNTER 2022-03-26 15:03 | Outpatient (CLI) | payer MEDICAID, SELFPAY ==
--- NOTE | 2022-03-26 15:15 | MR_ITS ---
WS: [id number] MRI LEFT KNEE NONCONTRAST TECHNIQUE: Axial PD, coronal PD fat sat, coronal PD, sagittal PD, and sagittal PD fat-sat images obta ined. CLINICAL INFORMATION: M25.562 - Pain in left knee COMPARISON: MRI October 22, 2020 FINDINGS: Distal quadriceps and patella tendons are intact. Normal ACL and PCL. Hypertrophic patella. Small suprapatellar effusion. Mild chondromalacia patella. No subchondral edema. Normal medial and l ateral patellar retinaculum. Normal medial and lateral collateral ligaments. Normal medial meniscus. Prior postoperative changes partial meniscectomy lateral meniscus with blunti ng of the anterior horn unchanged in appearance. MR/MR knee LT wo con* [id number] IMPRESSION: 1. Normal ACL and PCL. 2. Prior postoperative changes lateral meniscectomy. Normal medial meniscus. 3. Mild chondromalacia patella. Small suprapatellar effusion. Slightly hypertr ophic patella. 4. No other suspicious findings. Outbridge grading:
== END 2022-03-26 15:04 | disposition home or self-care (01) ==
LOC: RAD 15:05
PROVIDERS: PCP Physician Assistant; Visit Provider Orthopaedic Surgery
DX: Z98.890 Other specified postprocedural states (principal); M22.42 Chondromalacia patellae, left knee; M25.462 Effusion, left knee
CPT/HCPCS: 73721

== ENCOUNTER → 2022-04-21 13:24 | Outpatient (BNVA) | payer MEDICAID, SELFPAY | PROVIDERS: PCP Physician Assistant; Visit Provider Orthopaedic Surgery | DX: M25.562 Pain in left knee (principal) | CPT/HCPCS: 99213 ==

== ENCOUNTER 2022-11-18 04:11 | Emergency (ER) | payer MEDICAID, SELFPAY ==
[2022-11-18 04:12] VITALS: BP 113/80; PULSE 86; RESP 14; TEMP 36.7; O2SAT 100; BMI 19.5
--- NOTE | 2022-11-18 04:12 | ED_ITS ---
HPI - Nausea/Vomiting/Diarrhea General: Chief complaint: Nausea/Vomiting/Diarrhea Stated complaint: n/v/d Time Seen by Provider: 11/18/22 04:12 History of Present Illness: Ms. Biggs is a 22-year-old lady presented to the emergency department for lower abdominal pain. She notes onset of symptoms this evening after eating [employer]. Cramping in the lower abdomen with 1 episode of nonbilious nonbloody described as large volume emesis and one episode of watery diarrhea. Denies u rinary symptoms, vaginal symptoms. Symptoms mildly improved at this time though still present. More in the left lower quadrant and worse with palpation. No other specific changes in health, exacerbating, or alleviating factors identified. Onset (ago): minute(s) Description of vomiting: watery Description of diarrhea: watery Associated nausea: Yes Associated abdominal pain: Yes Location of pain: LLQ Associated symtoms: Reports nausea Review of Systems General: Reports: 10 or more systems reviewed and unremarkable except in HPI and below GI: Reports: nausea PFSH ED PFSH: Family History Grandmother Stroke maternal Family/Other Breast cancer maternal great aunt, 23 and again at 32 Colon cancer maternal great aunt, 23 Denies family history of Ovarian cancer Diabetes Clotting disorder Heart disease Hyperlipidemia Anesthesia complication Bleeding disorder Hypertension Uterine cancer Thyroid condition Social History Smoking and tobacco status: never smoked Alcohol intake: never Substance/Drug Use: never Physical Exam Const: COMMON NORMALS: alert GENERAL APPEARANCE: cooperative and well developed HENMT: COMMON NORMALS: normocephalic and atraumatic HEAD & SCALP: normocephalic and atraumatic THROAT: posterior oropharynx normal Eye: COMMON NORMALS: conjunctivae normal CONJUNCTIVA: Yes conjunctivae normal SCLERA: sclerae normal Neck/C-Spine: COMMON NORMALS: supple GENERAL: Yes trachea midline Resp: COMMON NORMALS: normal respiratory effort and clear to auscultation bilaterally EFFORT & INSPECTION: Yes able to speak in complete sentences AUSCULTATION: clear to auscultation bilaterally Cardio: COMMON NORMALS: regular rate and regular rhythm RATE: regular rate RHYTHM: regular rhythm GI: COMMON NORMALS: Soft to palpation PALPATION: Yes Soft to palpation, Yes Tenderness to palpation present (GI), No Guarding due to palpation present (GI) and No Rigid due to palpation Extremity: GENERAL: Yes normal exam except as noted and No edema Neuro: COMMON NORMALS: moves all extremities SENSORIUM/ORIENTATION: Yes alert and No Orientation impaired Psych: COMMON NORMALS: mental status grossly normal and Normal thought process present THOUGHT PROCESS: Normal thought process present Course Vital Signs: Vital signs: Vital Signs Temperature 98.1 F 11/18/22 05:15 Pulse Rate 78 11/18/22 05:15 Respiratory Rate 16 11/18/22 05:15 Blood Pressure 113/80 11/18/22 05:15 Pulse Oximetry 100 11/18/22 05:15 Oxygen Delivery Me thod Room Air 11/18/22 04:12 MDM - Nausea/Vomiting/Diarrhea Medical Decision Making 22-year-old lady presenting with nausea, vomiting, diarrhea and abdominal pain. Abdominal exam as above, no surgical abdomen, nontoxic in appearance. Labs notable for mild leukocytosis which is likely reactive, normal hemoglobin. Unremarkable metabolic panel. hCG negative. Patient is on her menstrual period which likely explains hematuria. Patient feels improved after treatment. Given his improvement, physical exam as well as ED evaluation and clinical history I do not believe that patient requires imaging at this time. The results of ED evaluation were discussed with the patient including prescriptions and/or symptomatic cares (if applicable) including appropriate and responsible use, followup plan, and return precautions. The patient verbalized understanding and felt safe for discharge. Medical Records I reviewed the patient's medical records. Lab Data I reviewed the patient's lab results. 11/18/22 04:22 11/18/22 04:22 Laboratory Results WBC 11.8 10^3/uL (4.0-10.0) H 11/18/22 04:22 RBC 5.01 10^6/uL (4.1-5.3) 11/18/22 04:22 Hgb 13.9 g/dL (11.5-15.3) 11/18/22 04:22 Hct 42.8 % (37.0-47.0) 11/18/22 04:22 MCV 85.4 fl (81-99) 11/18/22 04:22 MCH 27.7 pg (28.0-34.0) L 11/18/22 04:22 MCHC 32.5 g/dL (30.0-36.0) 11/18/22 04:22 RDW 12.9 % (12.1-15.1) 11/18/22 04:22 Plt Count 293 10^3/cmm (130-400) 11/18/22 04:22 MPV 9.8 fL (7.4-10.4) 11/18/22 04:22 Neut % (Auto) 68.1 % 11/18/22 04:22 Lymph % (Auto) 24.1 % 11/18/22 04:22 [place] % (Auto) 4.6 % 11/18/22 04:22 Eos % (Auto) 2.4 % 11/18/22 04:22 Baso % (Auto) 0.4 % 11/18/22 04:22 Neut # (Auto) 8.00 10^3/uL (1.8-7.7) H 11/18/22 04:22 Lymph # (Auto) 2.8 10^3/uL (0.8-4.8) 11/18/22 04:22 [place] # (Auto) 0.5 10^3/uL (0.2-0.9) 11/18/22 04:22 Eos # (Auto) 0.3 10^3/uL (0.0-0.8) 11/18/22 04:22 Baso # (Auto) 0.1 10^3/uL (0.0-0.1) 11/18/22 04:22 Nucleated RBC % (auto) 0 % 11/18/22 04:22 Nucleated RBCs # 0.0 /100WBC 11/18/22 04:22 Sodium 139 mmol/L (136-145) 11/18/22 04:22 Potassium 3.9 mmol/L (3.5-5.1) 11/18/22 04:22 Chloride 104 mmol/L (98-107) 11/18/22 04:22 Carbon Dioxide 25 mmol/L (22-29) 11/18/22 04:22 Anion Gap 13.9 (5-19) 11/18/22 04:22 BUN 12 mg/dL (6-20) 11/18/22 04:22 Creatinine 0.7 mg/dL (0.5-0.9) 11/18/22 04:22 GFR Calculation 102.8 mL/min (90-130) 11/18/22 04:22 Glucose 104 mg/dL (65-115) 11/18/22 04:22 Calculated Osmolality 288 mOsm/kg (285-295) 11/18/22 04:22 Calcium 9.5 mg/dL (8.5-10.5) 11/18/22 04:22 HCG, Qual Negative (Negative) 11/18/22 04:22 Urine Color Yellow (Yellow) 11/18/22 04:22 Urine Appearance Sl hazy (CLEAR) A 11/18/22 04:22 Urine pH 6 (5-7) 11/18/22 04:22 Ur Specific [place] 1.020 (1.005-1.030) 11/18/22 04:22 Urine Protein Neg (Negative) 11/18/22 04:22 Urine Glucose (UA) Norm (Normal) 11/18/22 04:22 Urine Ketones Negative (Negative) 11/18/22 04:22 Urine Blood 3+ (Negative) H 11/18/22 04:22 Urine Nitrate Negative (Negative) 11/18/22 04:22 Urine Bilirubin Neg (Negative) 11/18/22 04:22 Urine Urobilinogen Neg mg/dL (Negative) 11/18/22 04:22 Ur Leukocyte Esterase Negative (Negative) 11/18/22 04:22 Urine RBC 40-50 /hpf (0-2) H 11/18/22 04:22 Urine WBC None /hpf (0-5) 11/18/22 04:22 Ur Squamous Epith Cells 0-4 /hpf (0-5) H 11/18/22 04:22 Amorphous Sediment Not Reportable 11/18/22 04:22 Urine Bacteria 1+ /hpf (NONE) H 11/18/22 04:22 Discharge Plan Discharge Patient Disposition: Home Clinical Impression: Abdominal pain, Nausea, vomiting, and diarrhea Condition: Stable Prescriptions: New ondansetron 4 mg tablet,disintegrating 4 mg PO Q8H PRN (Reason: nausea and vomiting) Qty: 15 0RF dicyclomine 10 mg capsule 10 mg PO TID PRN (Reason: abdominal pain) Qty: 20 0RF No Action ibuprofen 800 mg tablet 800 mg PO TID PRN (Reason: pain) Qty: 60 0RF Colace 100 mg capsule 100 mg PO BID Qty: 60 0RF Iron (ferrous sulfate) 325 mg (65 mg iron) tablet 325 mg PO BID Qty: 60 0RF acetaminophen 325 mg capsule 325 mg PO Q4H PRN (Reason: fever or pain) Qty: 60 0RF prenat.vits,cruz,[id number] Tablet 1 tab PO DAILY Qty: 30 2RF Discharge Orders: Discharge ED (Routine); Ordered 11/18/22 Ordered By: Morris Bhatt Referrals: Una Cook PA-C [Referring] - Discharge Diet: Advance as tolerated and Clear Liquid Discharge Activity: Increase activity as tolerated Patient Instructions: Acute Nausea and Vomiting (ED), Acute Diarrhea (ED), Abdominal Pain (ED) Activity Restrictions/Additional Instructions: Thank you for visiting the emergency department. You were seen and evaluated for nausea, vomiting, diarrhea, and abdominal pain. The exact cause of your symptoms is unclear however does not appear to need further ED evaluation or hospitalization at this time. I recommend clear liquid diet and advancing slowly as tolerated. I will prescribe medication for abdominal cramping and medication for nausea. You may use [id number] medications such as acetaminophen and ibuprofen for pain however please do not exceed the daily recommended dosage as listed on the packaging and please keep in mind that many namebrand medications contain the same active ingredients. Please avoid these medications if previously instructed to do so by another physician due to other underlying medical condition. Please follow-up with a primary care provider. Return for uncontrolled symptoms or anything else that you are concerned about and feel needs emergency department evaluation. Coding Level of Care Code ED Funeral Service Manager for Darinel Hutson
[2022-11-18] MEDS: sodium chloride 0.9% 1,000 ML 999 ML IV (04:33)
[2022-11-18] MEDS: ondansetron 2 mg/ML SDV 2 mL 4 MG IVP (04:34)
[2022-11-18] MEDS: dicyclomine 10 mg Capsule PO (04:34)
[2022-11-18 04:37] LABS: Basophils # 0.1 10^3/uL (0.0-0.1); Basophils % 0.4 %; Eosinophils # 0.3 10^3/uL (0.0-0.8); Eosinophils % 2.4 %; Hematocrit 42.8 % (37.0-47.0); Hemoglobin 13.9 g/dL (11.5-15.3); Lymphocytes # 2.8 10^3/uL (0.8-4.8); Lymphocytes % 24.1 %; Mean Corpuscular HGB Conc 32.5 g/dL (30.0-36.0); Mean Corpuscular Hemoglobin 27.7 pg (28.0-34.0); Mean Corpuscular Volume 85.4 fl (81-99); Mean Platelet Volume 9.8 fL (7.4-10.4); Monocytes # 0.5 10^3/uL (0.2-0.9); Monocytes % 4.6 %; Neutrophils % 68.1 %; Nucleated Red Blood Cells % 0 %; Platelet Count 293 10^3/cmm (130-400); Red Blood Count 5.01 10^6/uL (4.1-5.3); Red Cell Distribution Width 12.9 % (12.1-15.1); White Blood Count 11.8 10^3/uL (4.0-10.0)
[2022-11-18 04:38] VITALS: BP 113/80; PULSE 77; RESP 16; O2SAT 99
[2022-11-18 04:38] LABS: HCG, Serum Qual Negative (Negative)
[2022-11-18 04:44] LABS: Anion Gap 13.9 (5-19); Blood Urea Nitrogen 12 mg/dL (6-20); Calcium 9.5 mg/dL (8.5-10.5); Carbon Dioxide 25 mmol/L (22-29); Chloride 104 mmol/L (98-107); Glomerular Filtration Rate 102.8 mL/min (90-130); Glucose 104 mg/dL (65-115); Osmolality Calculated 288 mOsm/kg (285-295); Potassium 3.9 mmol/L (3.5-5.1); Sodium 139 mmol/L (136-145)
[2022-11-18 04:52] LABS: Add Urine Microscopic? YES; Bilirubin Urine Neg (Negative); Blood Urine 3+ (Negative); Glucose Urine UA Norm (Normal); Ketones Urine Negative (Negative); Leukocyte Esterase Urine Negative (Negative); Nitrate Urine Negative (Negative); Protein Urine Neg (Negative); Urine Appearance SL Hazy (CLEAR); Urine Color Yellow (Yellow); Urobilinogen Urine Neg (Negative); pH Urine 6 (5-7)
[2022-11-18 04:53] LABS: Add Urine Culture? Yes; Bacteria Urine 1+ /hpf; RBC Urine 40-50 /hpf (0-2); Squamous Epithelial Cell Urine 0-4 /hpf (0-5)
[2022-11-18] MEDS: ketorolac 30 mg/mL INJ 15 MG IVP (04:58)
[2022-11-18 05:14] VITALS: BP 113/80; PULSE 78; RESP 16; O2SAT 100
[2022-11-18 05:15] VITALS: BP 113/80; PULSE 78; RESP 16; TEMP 36.7; O2SAT 100
== END 2022-11-18 05:15 | disposition home or self-care (01) ==
PROVIDERS: Emergency Provider Emergency Medicine; PCP Family Medicine
DX: R10.32 Left lower quadrant pain (principal); R11.2 Nausea with vomiting, unspecified; R19.7 Diarrhea, unspecified
CPT/HCPCS: 80048; 81001; 84703; 85025; 87086; 96361; 96374; 96375; 99284; J1885; J2405; J7030

== ENCOUNTER 2024-04-10 00:15 | Emergency (ER) | payer SELFPAY ==
[2024-04-10 00:16] VITALS: BP 114/73; PULSE 85; RESP 15; TEMP 37; O2SAT 100; BMI 21.2
[2024-04-10 00:21] VITALS: BP 107/71; PULSE 82; O2SAT 99
--- NOTE | 2024-04-10 00:22 | ED_ITS ---
HPI - Abdominal Pain 2 General: Chief Complaint: Abdominal Pain Stated Complaint: ABD PAIN Time Seen by Provider: 04/10/24 00:17 Source: patient and EMS Mode of arrival: EMS Limitations: no limitations History of Present Illness: 23-year-old female who states she ate ro [employer] 3 hours ago started having some epigastric pain states the pain was a sharp burning pain at first and rated an 8 out of 10 and improved states her pain currently is only a 2 out of 10 she fevers denies any worsening proving factors. States she had vomited once Associated Symptoms: Reports nausea and vomiting; Denies chills, diarrhea and fever(s) Related Data Previous Rx's Medication Instructions Recorded acetaminophen 325 mg capsule 325 mg PO Q4H PRN fever or pain 08/29/21 #60 caps docusate sodium 100 mg capsule 100 mg PO BID #60 caps 08/29/21 (Colace) ferrous sulfate 325 mg (65 mg 325 mg PO BID #60 tabs 08/29/21 iron) tablet (Iron (ferrous sulfate)) ibuprofen 800 mg tablet 800 mg PO TID PRN pain #60 tabs 08/29/21 prenat.vits,cruz,mjt-[id number] 1 tab PO DAILY #30 tabs 09/02/21 dicyclomine 10 mg capsule 10 mg PO TID PRN abdominal pain 11/18/22 #20 caps ondansetron 4 mg disintegrating 4 mg PO Q8H PRN nausea and 11/18/22 tablet vomiting #15 tabs Allergies Allergy/AdvReac Type Severity Reaction Status Date / Time No Known Allergies Allergy Verified 04/10/24 00:21 Review of Systems 2 Const: Denies: fever(s), chills, body aches or change in appetite Eyes: Denies: eye discomfort ENMT: Denies: throat pain or dental pain Card: Denies: chest pain Resp: Denies: dyspnea GI: Reports: abdominal pain, nausea and vomiting; Denies: diarrhea Musc: Denies: neck pain or back pain Skin/Breast: Denies: rash Neuro: Denies: headache(s) PFSH ED 2 PFSH: Family History Grandmother Stroke maternal Family/Other Breast cancer maternal great aunt, 23 and again at 32 Colon cancer maternal great aunt, 23 Denies family history of Ovarian cancer Diabetes Clotting disorder Heart disease Hyperlipidemia Anesthesia complication Bleeding disorder Hypertension Uterine cancer Thyroid disease Social History Smoking and tobacco/nicotine status: never used tobacco/nicotine Alcohol intake: never Substance/Drug Use: never Physical Exam 2 Const: COMMON NORMALS: no acute distress, patient oriented x3 and healthy appearing HENMT: COMMON NORMALS: normocephalic and atraumatic HEAD & SCALP: n ormocephalic and atraumatic Neck/C-Spine: COMMON NORMALS: full ROM and supple Chest: COMMONS NORMALS: normal inspection of the chest Resp: COMMON NORMALS: normal respiratory effort, No retractions, No use of accessory muscles and clear to auscultation bilaterally AUSCULTATION: clear to auscultation bilaterally Cardio: COMMON NORMALS: regular rate, regular rhythm and No murmurs present (Cardio) RATE: regular rate RHYTHM: regular rhythm GI: COMMON NORMALS: Normal to inspection, nondistended, normoactive bowel sounds present, Soft to palpation, non-tender and no masses PALPATION: Yes Soft to palpation Extremity: COMMON NORMALS: normal to inspection and full ROM Neuro: COMMON NORMALS: patient oriented x3, moves all extremities and no focal motor deficits Psych: COMMON NORMALS: mental status grossly normal, Normal thought process present and cooperative THOUGHT PROCESS: Normal thought process present Skin: COMMON NORMALS: no rashes or lesions noted and no wounds GENERAL SKIN EXAM: no rashes or lesions noted Course 2 Vital Signs: Vital signs: Vital Signs Temperature 98.6 F 04/10/24 00:16 Pulse Rate 85 04/10/24 00:16 Respiratory Rate 15 04/10/24 00:16 Blood Pressure 114/73 04/10/24 00:16 Pulse Oximetry 100 04/10/24 00:16 Oxygen Delivery Me thod Room Air 04/10/24 00:16 MDM - Abdominal Pain Medical Decision Making Patient presents for abdominal pain after eating is since resolved she has no pain here no tenderness no tenderness of her right upper quadrant blood works normal her serum qualitative is likely a false positive quantitative here is negative she is not she is stable for discharge she is follow-up with her PCP and return if worsening she understands agrees to plan. Medical Records I reviewed the patient's medical records. Lab Data I reviewed the patient's lab results. 11/25/24 00:26 04/10/24 00:43 Labs/Radiology: Laboratory Results WBC 11.88 10^3/uL (3.29-11.43) H 04/10/24 00:26 RBC 4.64 10^6/uL (3.85-5.65) 04/10/24 00:26 Hgb 13.00 g/dL (11.27-16.99) 04/10/24 00:26 Hct 40.3 % (36-47) 04/10/24 00:26 MCV 86.9 fl (85-98) 04/10/24 00:26 MCH 28.0 pg (27-33) 04/10/24 00: MCHC 32.3 g/dL (30-55) 04/10/24 00: RDW 13.2 % (12.1-15.1) 04/10/24 00: Plt Count 304 10^3/cmm (157-399) 04/10/24 00: MPV 10.2 fL (7.4-10.4) 04/10/24 00:26 Neut % (Auto) 71.9 % 04/10/24 00:26 Lymph % (Auto) 20.2 % 04/10/24 00:26 [place] % (Auto) 5.2 % 04/10/24 00:26 Eos % (Auto) 1.8 % 04/10/24 00:26 Baso % (Auto) 0.4 % 04/10/24 00:26 Neut # (Auto) 8.54 10^3/uL (1.8-7.7) H 04/10/24 00:26 Lymph # (Auto) 2.4 10^3/uL (0.8-4.8) 04/10/24 00:26 [place] # (Auto) 0.6 10^3/uL (0.2-0.9) 04/10/24 00:26 Eos # (Auto) 0.2 10^3/uL (0.0-0.8) 04/10/24 00:26 Baso # (Auto) 0.1 10^3/uL (0.0-0.1) 04/10/24 00:26 Nucleated RBC % (auto) 0 % 04/10/24 00:26 Nucleated RBCs # 0.0 /100WBC 04/10/24 00:26 Sodium 139 mmol/L (136-145) 04/10/24 00:43 Potassium 3.9 mmol/L (3.5-5.1) 04/10/24 00:43 Chloride 102 mmol/L (98-107) 04/10/24 00:43 Carbon Dioxide 27 mmol/L (22-29) 04/10/24 00:43 Anion Gap 13.9 (5-19) 04/10/24 00:43 BUN 10 mg/dL (6-20) 04/10/24 00:43 Creatinine 0.6 mg/dL (0.5-0.9) 04/10/24 00:43 GFR Calculation 121.8 mL/min (90-130) 04/10/24 00:43 Glucose 101 mg/dL (65-115) 04/10/24 00:43 Calculated Osmolality 287 mOsm/kg (285-295) 04/10/24 00:43 Calcium 9.2 mg/dL (8.5-10.5) 04/10/24 00:43 Total Bilirubin 0.2 mg/dL (0.15-1.2) 04/10/24 00:43 AST 20 U/L (0-32) 04/10/24 00:43 ALT 15 U/L (0-33) 04/10/24 00:43 Alkaline Phosphatase 75 U/L (35-105) 04/10/24 00:43 Total Protein 7.3 g/dL (6.6-8.7) 04/10/24 00:43 Albumin 4.5 g/dL (3.5-5.2) 04/10/24 00:43 Globulin 2.8 g/dL (1.3-4.6) 04/10/24 00:43 Lipase 32 U/L (13-60) 04/10/24 00:43 HCG, Qual Positive (Negative) H 04/10/24: Ser , Semi-Qnt 1.00 mIU/mL 04/10/24 00:43 Urine Color Yellow (Yellow) 04/10/24: Urine Appearance Cloudy (CLEAR) A 04/10/24 00: Urine pH 7.0 (5-7) 04/10/24:26 Ur Specific [place] 1.019 (1.005-1.030) 04/10/24 00:26 Urine Protein Negative (Negative) 04/10/24 00:26 Urine Glucose (UA) Negative (Normal) 04/10/24 00:26 Urine Ketones Negative (Negative) 04/10/24 00:26 Urine Blood 1+ (Negative) A 04/10/24 00:26 Urine Nitrate Negative (Negative) 04/10/24 00:26 Urine Bilirubin Negative (Negative) 04/10/24 00: Urine Urobilinogen 1.0 mg/dL (Negative) 04/10/24 00:26 Ur Leukocyte Esterase Trace (Negative) A 04/10/24 00:26 Urine RBC 0-2 /hpf (0-2) 04/10/24 00:26 Urine WBC 0-5 /hpf (0-5) 04/10/24 00:26 Ur Squamous Epith Cells 6-10 /hpf (0-5) 04/10/24 00:26 Amorphous Sediment Not Reportable 04/10/24 00: Urine Bacteria Trace /hpf (NONE) 04/10/24 00:26 Hyaline Casts 0.40 /lpf 04/10/24 00:26 No radiology studies performed this visit Discharge Plan Discharge Patient Disposition: Home Clinical Impression: Abdominal pain Condition: Stable Prescriptions: No Action ibuprofen 800 mg tablet 800 mg PO TID PRN (Reason: pain) Qty: 60 0RF Colace 100 mg capsule 100 mg PO BID Qty: 60 0RF Iron (ferrous sulfate) 325 mg (65 mg iron) tablet 325 mg PO BID Qty: 60 0RF acetaminophen 325 mg capsule 325 mg PO Q4H PRN (Reason: fever or pain) Qty: 60 0RF prenat.vits,cruz,[id number] Tablet 1 tab PO DAILY Qty: 30 2RF ondansetron 4 mg tablet,disintegrating 4 mg PO Q8H PRN (Reason: nausea and vomiting) Qty: 15 0RF dicyclomine 10 mg capsule 10 mg PO TID PRN (Reason: abdominal pain) Qty: 20 0RF Discharge Orders: Discharge ED (Routine); Ordered 04/10/24 Ordered By: Franklin Hummel Referrals: Hipolito Russell DO [Primary Care Provider] - 4-7 days Discharge Diet: Advance as tolerated Discharge Activity: Resume usual activity Patient Instructions: Abdominal Pain (ED) Coding Level of Care Code ED Print Cutter for Darinel Hutson
[2024-04-10] MEDS: ondansetron 2 mg/ML SDV 2 mL 4 MG IVP (00:33)
[2024-04-10] MEDS: lidocaine 2% viscous 15 ML, aluminum-mag hydrox-simethicon 30 ML, sucralfate oral liq 1 GM PO (00:34)
[2024-04-10 00:38] LABS: Bilirubin Urine Negative (Negative); Blood Urine 1+ (Negative); Glucose Urine UA Negative (Normal); Ketones Urine Negative (Negative); Leukocyte Esterase Urine Trace (Negative); Nitrate Urine Negative (Negative); Protein Urine Negative (Negative); Specific Gravity, Urine 1.019 (1.005-1.030); Urine Appearance Cloudy (CLEAR); Urine Color Yellow (Yellow)
[2024-04-10 00:43] LABS: Add Urine Microscopic? YES; Bacteria Urine Trace /hpf; HCG, Serum Qual Positive (Negative); RBC Urine 0-2 /hpf (0-2); WBC Urine 0-5 /hpf (0-5)
[2024-04-10 00:52] LABS: Basophils # 0.1 10^3/uL (0.0-0.1); Basophils % 0.4 %; Eosinophils # 0.2 10^3/uL (0.0-0.8); Eosinophils % 1.8 %; Hematocrit 40.3 % (36-47); Lymphocytes # 2.4 10^3/uL (0.8-4.8); Lymphocytes % 20.2 %; Mean Corpuscular HGB Conc 32.3 g/dL (30-55); Mean Corpuscular Volume 86.9 fl (85-98); Mean Platelet Volume 10.2 fL (7.4-10.4); Monocytes # 0.6 10^3/uL (0.2-0.9); Monocytes % 5.2 %; Neutrophils # 8.54 10^3/uL (1.8-7.7); Neutrophils % 71.9 %; Nucleated Red Blood Cells % 0 %; Platelet Count 304 10^3/cmm (157-399); Red Blood Count 4.64 10^6/uL (3.85-5.65); Red Cell Distribution Width 13.2 % (12.1-15.1); White Blood Count 11.88 10^3/uL (3.29-11.43)
[2024-04-10 01:10] VITALS: BP 107/74; PULSE 91; O2SAT 99
[2024-04-10 01:11] LABS: Alanine Aminotransferase 15 U/L (0-33); Albumin Level 4.5 g/dL (3.5-5.2); Alkaline Phosphatase 75 U/L (35-105); Anion Gap 13.9 (5-19); Aspartate Amino Transferase 20 U/L (0-32); Blood Urea Nitrogen 10 mg/dL (6-20); Calcium 9.2 mg/dL (8.5-10.5); Carbon Dioxide 27 mmol/L (22-29); Chloride 102 mmol/L (98-107); Creatinine Clr Calc Pharmacy 120.4054; Globulin 2.8 g/dL (1.3-4.6); Glomerular Filtration Rate 121.8 mL/min (90-130); Glucose 101 mg/dL (65-115); Lipase 32 U/L (13-60); Osmolality Calculated 287 mOsm/kg (285-295); Potassium 3.9 mmol/L (3.5-5.1); Sodium 139 mmol/L (136-145); Total Bilirubin 0.2 mg/dL (0.15-1.2); Total Protein 7.3 g/dL (6.6-8.7)
[2024-04-10 01:30] VITALS: BP 115/70; PULSE 86; O2SAT 97
[2024-04-10 02:08] VITALS: BP 104/52; PULSE 79; O2SAT 98
== END 2024-04-10 02:00 | disposition home or self-care (01) ==
PROVIDERS: Emergency Provider Emergency Medicine; PCP Family Medicine
DX: R10.9 Unspecified abdominal pain (principal)
CPT/HCPCS: 36415; 80053; 81001; 83690; 84702; 84703; 85025; 96374; 99284; J2405

== ENCOUNTER 2024-07-02 23:02 | Emergency (ER) | payer SELFPAY ==
[2024-07-02 23:07] VITALS: BP 123/77; PULSE 91; RESP 16; TEMP 36.8; O2SAT 100; BMI 19.5
[2024-07-02 23:11] VITALS: PULSE 81
--- NOTE | 2024-07-02 23:12 | ED_ITS ---
HPI - Abdominal Pain 2 General: Chief Complaint: Abdominal Pain Stated Complaint: ABD PAIN Time Seen by Provider: 07/02/24 23:03 Source: patient and EMS Mode of arrival: EMS Limitations: no limitations History of Present Illness: 23-year-old female who states she has be en having diffuse abdominal pain for the last 2 days along with vomiting. Patient states her pain is in her middle of her abdomen she rates today 6 out of 10 currently she denies any fevers denies any worse improving factors. Associated Symptoms: Reports nausea and vomiting; Denies chills, diarrhea, dysuria and fever(s) Related Data Previous Rx's ?Medication ?Instructions ?Recorded acetaminophen 325 mg capsule 325 mg PO Q4H PRN fever o r pain 08/29/21 #60 caps docusate sodium 100 mg capsule 100 mg PO BID #60 caps 08/29/21 (Colace) ferrous sulfate 325 mg (65 mg 325 mg PO BID #60 tabs 0 08/29/21 iron) tablet (Iron (ferrous sulfate)) ibuprofen 800 mg tablet 800 mg PO TID PRN pain #60 t abs 08/29/21 prenat.vits,cruz,[id number] 1 tab PO DAILY #30 tabs 09/02/21 dicyclomine 10 mg capsule 10 mg PO TID PRN abdominal p ain 11/18/22 #20 caps ondansetron 4 mg disintegrating 4 mg PO Q8H PRN nausea and 11/18/22 tablet vomiting #15 tabs ondansetron 4 mg disintegrating 4 mg PO Q6H PRN nausea and 07/03/24 tablet vomiting #14 tabs Allergies Allergy/AdvReac Type Severity Reaction Status Date / Time No Known Allergies Allergy Verified 04/10/24 00:21 Review of Systems 2 Const: Denies: fever(s), chills, body aches or change in appetite ENMT: Denies: throat pain or dental pain Card: Denies: chest pain Resp: Denies: dyspnea GI: Reports: abdominal pain, nausea and vomiting; Denies: diarrhea : Denies: dysuria Musc: Denies: neck pain or back pain Skin/Breast: Denies: rash Neuro: Denies: headache(s) PFSH ED 2 PFSH: Family History Grandmother Stroke maternal Family/Other Breast cancer maternal great aunt, 23 and again at 32 Colon cancer maternal great aunt, 23 Denies family history of Ovarian cancer Diabetes Clotting disorder Heart disease Hyperlipidemia Anesthesia complication Bleeding disorder Hypertension Uterine cancer Thyroid disease Social History Smoking and tobacco/nicotine status: never used tobacco/nicotine Alcohol intake: never Substance/Drug Use: never Physical Exam 2 Const: COMMON NORMALS: no acute distress, patient oriented x3 and healthy appearing HENMT: COMMON NORMALS: normocephalic and atraumatic HEAD & SCALP: n ormocephalic and atraumatic Eye: COMMON NORMALS: conjunctivae normal CONJUNCTIVA: Yes conjunctivae normal Neck/C-Spine: COMMON NORMALS: full ROM and supple Chest: COMMONS NORMALS: normal inspection of the chest Resp: COMMON NORMALS: normal respiratory effort, No retractions, No use of accessory muscles and clear to auscultation bilaterally AUSCULTATION: clear to auscultation bilaterally Cardio: COMMON NORMALS: regular rate, regular rhythm and No murmurs present (Cardio) RATE: regular rate RHYTHM: regular rhythm GI: COMMON NORMALS: Normal to inspection, nondistended, normoactive bowel sounds present, Soft to palpation and no masses PALPATION: Yes Soft to palpation OTHER: mild diffuse tenderness Extremity: COMMON NORMALS: normal to inspection and full ROM Neuro: COMMON NORMALS: patient oriented x3, moves all extremities and no focal motor deficits Psych: COMMON NORMALS: mental status grossly normal, Normal thought process present and cooperative THOUGHT PROCESS: Normal thought process present Skin: COMMON NORMALS: no rashes or lesions noted and no wounds GENERAL SKIN EXAM: no rashes or lesions noted Course 2 Vital Signs: Vital signs: Vital Signs Temperature 98.3 F 07/02/24 23:07 Pulse Rate 91 07/02/24 23:07 Respiratory Rate 16 07/02/24 23:07 Blood Pressure 123/77 07/02/24 23:22 Pulse Oximetry 100 07/02/24 23:30 Oxygen Delivery Me thod Room Air 07/02/24 23:07 MDM - Abdominal Pain Medical Decision Making Patient presents with abdominal pain her exam here is benign her pain has resolved CT did show gallstones no signs of cholecystitis blood works normal we will get her follow-up with surgery she is follow-up with her PCP and return if worsening. Medical Records I reviewed the patient's medical records. Lab Data I reviewed the patient's lab results. 07/02/24 23:09 07/02/24 23:09 Labs/Radiology: Radiology Impressions Abdomen/Pelvis CT 07/02/24 23:14 IMPRESSION: 1. Cholelithiasis. 2. Mild periportal edema is nonspecific, may be seen in the setting of increased volume status or hepatitis, for example. Laboratory Results WBC 8.83 10^3/uL (3.29-11.43) 07/02/24 23:09 RBC 4.42 10^6/uL (3.85-5.65) 07/02/24 23:09 Hgb 12.20 g/dL (11.27-16.99) 07/02/24 23:09 Hct 38.5 % (36-47) 07/02/24 23:09 MCV 87.1 fl (85-98) 07/02/24 23:09 MCH 27.6 pg (27-33) 07/02/24 23:09 MCHC 31.7 g/dL (30-55) 07/02/24 23:09 RDW 12.5 % (12.1-15.1) 07/02/24 23:09 Plt Count 264 10^3/cmm (157-399) 07/02/24 23:09 MPV 9.9 fL (7.4-10.4) 07/02/24 23:09 Neut % (Auto) 61.0 % 07/02/24 23:09 Lymph % (Auto) 30.9 % 07/02/24 23:09 [place] % (Auto) 4.8 % 07/02/24 23:09 Eos % (Auto) 2.3 % 07/02/24 23:09 Baso % (Auto) 0.5 % 07/02/24 23:09 Neut # (Auto) 5.40 10^3/uL (1.8-7.7) 07/02/24 23:09 Lymph # (Auto) 2.7 10^3/uL (0.8-4.8) 07/02/24 23:09 [place] # (Auto) 0.4 10^3/uL (0.2-0.9) 07/02/24 23:09 Eos # (Auto) 0.2 10^3/uL (0.0-0.8) 07/02/24 23:09 Baso # (Auto) 0.0 10^3/uL (0.0-0.1) 07/02/24 23:09 Nucleated RBC % (auto) 0 % 07/02/24 23:09 Nucleated RBCs # 0.0 /100WBC 07/02/24 23:09 Sodium 138 mmol/L (136-145) 07/02/24 23:09 Potassium 3.5 mmol/L (3.5-5.1) 07/02/24 23:09 Chloride 102 mmol/L (98-107) 07/02/24 23:09 Carbon Dioxide 23 mmol/L (22-29) 07/02/24 23:09 Anion Gap 16.5 (5-19) 07/02/24 23:09 BUN 11 mg/dL (6-20) 07/02/24 23:09 Creatinine 0.6 mg/dL (0.5-0.9) 07/02/24 23:09 GFR Calculation 121.8 mL/min (90-130) 07/02/24 23:09 Glucose 103 mg/dL (65-115) 07/02/24 23:09 Calculated Osmolality 286 mOsm/kg (285-295) 07/02/24 23:09 Calcium 9.0 mg/dL (8.5-10.5) 07/02/24 23:09 Total Bilirubin 0.3 mg/dL (0.15-1.2) 07/02/24 23:09 AST 26 U/L (0-32) 07/02/24 23:09 ALT 13 U/L (0-33) 07/02/24 23:09 Alkaline Phosphatase 75 U/L (35-105) 07/02/24 23:09 Total Protein 6.9 g/dL (6.6-8.7) 07/02/24 23:09 Albumin 3.9 g/dL (3.5-5.2) 07/02/24 23:09 Globulin 3.0 g/dL (1.3-4.6) 07/02/24 23:09 Lipase 32 U/L (13-60) 07/02/24 23:09 HCG, Qual Negative (Negative) 07/02/24 23:09 All radiology interpretation(s) finalized by discharge Discharge Plan Discharge Patient Disposition: Home Clinical Impression: Abdominal pain, [place] Condition: Stable Prescriptions: New ondansetron 4 mg tablet,disintegrating 4 mg PO Q6H PRN (Reason: nausea and vomiting) Qty: 14 0RF No Action ibuprofen 800 mg tablet 800 mg PO TID PRN (Reason: pain) Qty: 60 0RF Colace 100 mg capsule 100 mg PO BID Qty: 60 0RF Iron (ferrous sulfate) 325 mg (65 mg iron) tablet 325 mg PO BID Qty: 60 0RF acetaminophen 325 mg capsule 325 mg PO Q4H PRN (Reason: fever or pain) Qty: 60 0RF prenat.vits,cruz,[id number] Tablet 1 tab PO DAILY Qty: 30 2RF ondansetron 4 mg tablet,disintegrating 4 mg PO Q8H PRN (Reason: nausea and vomiting) Qty: 15 0RF dicyclomine 10 mg capsule 10 mg PO TID PRN (Reason: abdominal pain) Qty: 20 0RF Discharge Orders: Discharge ED (Routine); Ordered 07/03/24 Ordered By: Franklin Hummel Referrals: Andrea Velasquez MD [Physician] - 4-7 days Hipolito Russell DO [Primary Care Provider] - Discharge Diet: Advance as tolerated Discharge Activity: Resume usual activity Patient Instructions: Abdominal Pain (ED) Print Language: Israeli Coding Level of Care Code ED International Editorial Producer for Darinel Hutson
--- NOTE | 2024-07-02 23:14 | CTR_ITS ---
PROCEDURE INFORMATION: Exam: CT Abdomen And Pelvis With Contrast Exam date and time: 07/02/2024 11:42 PM Age: 23 years old Clinical indication: Nausea and vomiting; Abdominal pain; Epigastric pain with n/v; Additional info: Abd pain TECHNIQUE: Imaging protocol: Computed tomography of the abdomen and pelvis with contrast. Radiation optimization: All CT scans at this facility use at least one of these dose optimization techniques: automated exposure control; mA and/or kV adjustment per patient size (includes targeted exams where dose is matched to clinical indication); or iterative reconstruction. Contrast material: OMNI 350; Contrast volume: 80 ml; Contrast route: INTRAVENOUS (IV); COMPARISON: CT abdomen pelvis w con* [id number] 09/19/2020 11:40 PM RADIATION DOSE METRICS: Total DLP (mGy-cm): 353.79 FINDINGS: Liver: Mild periportal edema. Otherwise unremarkable. Gallbladder and biliary ducts: Cholelithiasis without CT findings of cholecystitis. No biliary ductal dilatation. Pancreas: Normal. No ductal dilation. Spleen: No splenomegaly. Calcified granulomata. Adrenal glands: Normal. No mass. Kidneys and ureters: Normal. No hydronephrosis. Stomach and bowel: Unremarkable. No bowel dilatation to suggest obstruction. Appendix: Normal. Intraperitoneal space: Unremarkable. No free air. No significant fluid collection. Vasculature: Unremarkable. No abdominal aortic aneurysm. Lymph nodes: Unremarkable. No enlarged lymph nodes. Urinary bladder: Unremarkable as visualized. Reproductive: 2.2 cm right ovarian dominant follicle. Otherwise unremarkable as visualized. Bones/joints: No acute fracture. Right L5 pars interarticularis defect. Soft tissues: Unremarkable. CT/CT abdomen pelvis w con* [id number] IMPRESSION: 1. Cholelithiasis. 2. Mild periportal edema is nonspecific, may be seen in the setting of increased volume status or hepatitis, for example.
[2024-07-02 23:15] LABS: Basophils % 0.5 %; Eosinophils # 0.2 10^3/uL (0.0-0.8); Eosinophils % 2.3 %; Hematocrit 38.5 % (36-47); Lymphocytes # 2.7 10^3/uL (0.8-4.8); Lymphocytes % 30.9 %; Mean Corpuscular HGB Conc 31.7 g/dL (30-55); Mean Corpuscular Hemoglobin 27.6 pg (27-33); Mean Corpuscular Volume 87.1 fl (85-98); Mean Platelet Volume 9.9 fL (7.4-10.4); Monocytes # 0.4 10^3/uL (0.2-0.9); Monocytes % 4.8 %; Nucleated Red Blood Cells % 0 %; Platelet Count 264 10^3/cmm (157-399); Red Blood Count 4.42 10^6/uL (3.85-5.65); Red Cell Distribution Width 12.5 % (12.1-15.1); White Blood Count 8.83 10^3/uL (3.29-11.43)
[2024-07-02 23:22] VITALS: BP 123/77
[2024-07-02 23:30] VITALS: PULSE 82; O2SAT 100
[2024-07-02 23:34] LABS: HCG, Serum Qual Negative (Negative)
[2024-07-02 23:36] LABS: Alanine Aminotransferase 13 U/L (0-33); Albumin Level 3.9 g/dL (3.5-5.2); Alkaline Phosphatase 75 U/L (35-105); Anion Gap 16.5 (5-19); Aspartate Amino Transferase 26 U/L (0-32); Blood Urea Nitrogen 11 mg/dL (6-20); Carbon Dioxide 23 mmol/L (22-29); Chloride 102 mmol/L (98-107); Creatinine Clr Calc Pharmacy 116.2999; Glomerular Filtration Rate 121.8 mL/min (90-130); Glucose 103 mg/dL (65-115); Lipase 32 U/L (13-60); Osmolality Calculated 286 mOsm/kg (285-295); Potassium 3.5 mmol/L (3.5-5.1); Sodium 138 mmol/L (136-145); Total Bilirubin 0.3 mg/dL (0.15-1.2); Total Protein 6.9 g/dL (6.6-8.7)
[2024-07-02] MEDS: iohexol 350 mg/mL 500 mL Btl (per mL) IV (23:47)
--- NOTE | 2024-07-02 23:58 | PC.NURSE ---
Patient denies pain at this time.
[2024-07-03] VITALS: BP 113/75; PULSE 85; O2SAT 100
[2024-07-03 00:15] VITALS: O2SAT 99
[2024-07-03 00:30] VITALS: PULSE 91; O2SAT 98
[2024-07-03 00:45] VITALS: O2SAT 98
[2024-07-03 00:45] LABS: Bilirubin Urine Negative (Negative); Blood Urine Trace (Negative); Glucose Urine UA Negative (Normal); Ketones Urine Negative (Negative); Leukocyte Esterase Urine Negative (Negative); Nitrate Urine Negative (Negative); Protein Urine Negative (Negative); Urine Appearance Clear (CLEAR); Urine Color Yellow (Yellow); Urobilinogen Urine 0.2 mg/dL (Negative); pH Urine 6.5 (5-7)
[2024-07-03 00:50] LABS: Add Urine Microscopic? YES; Bacteria Urine None Seen /hpf; Hyaline Casts Urine 0-4 /lpf; RBC Urine 0-2 /hpf (0-2); Squamous Epithelial Cell Urine 0-5 /hpf (0-5); WBC Urine 0-5 /hpf (0-5)
[2024-07-03 00:57] LABS: Specific Gravity, Urine 1.051 (1.005-1.030)
[2024-07-03 01:00] VITALS: PULSE 93
[2024-07-03 01:08] VITALS: BP 103/70; PULSE 85; RESP 18; O2SAT 100
--- NOTE | 2024-07-04 07:42 | DCPLANNER ---
Message sent to General Surgery for follow up
== END 2024-07-03 01:20 | disposition home or self-care (01) ==
PROVIDERS: Emergency Provider Emergency Medicine; PCP Family Medicine
DX: K80.20 Calculus of gallbladder without cholecystitis without obstruction (principal)
CPT/HCPCS: 74177; 80053; 81001; 83690; 84703; 85025; 99285

== ENCOUNTER 2024-07-03 04:53 | Emergency (ER) | payer SELFPAY ==
[2024-07-03] VITALS (7 sets, daily range): BP systolic 110–117; BP diastolic 62–76; PULSE 73–103; RESP 16; TEMP 36.6; O2SAT 93–100
--- NOTE | 2024-07-03 05:16 | ED_ITS ---
HPI - Abdominal Pain General: Chief Complaint: Abdominal Pain Stated Complaint: ABD Time Seen by Provider: 07/03/24 04:58 Source: patient Mode of arrival: ambulatory Limitations: no limitations History of Present Illness: 23-year-old female who states she been h aving abdominal pain over the last few days she was seen here earlier tonight had an workup was normal including CT states been the waiting room and she has been having some worsening lower pain she rates a 4 out of 10 denies any vomiting denies dysuria or diarrhea Associated Symptoms: Denies chills, diarrhea, dysuria, fever(s), nausea and vomiting Related Data Previous Rx's ?Medication ?Instructions ?Recorded acetaminophen 325 mg capsule 325 mg PO Q4H PRN fever o r pain 08/29/21 #60 caps docusate sodium 100 mg capsule 100 mg PO BID #60 caps 08/29/21 (Colace) ferrous sulfate 325 mg (65 mg 325 mg PO BID #60 tabs 0 08/29/21 iron) tablet (Iron (ferrous sulfate)) ibuprofen 800 mg tablet 800 mg PO TID PRN pain #60 t abs 08/29/21 prenat.vits,cruz,[id number] 1 tab PO DAILY #30 tabs 09/02/21 dicyclomine 10 mg capsule 10 mg PO TID PRN abdominal p ain 11/18/22 #20 caps ondansetron 4 mg disintegrating 4 mg PO Q8H PRN nausea and 11/18/22 tablet vomiting #15 tabs ondansetron 4 mg disintegrating 4 mg PO Q6H PRN nausea and 07/03/24 tablet vomiting #14 tabs Allergies Allergy/AdvReac Type Severity Reaction Status Date / Time No Known Allergies Allergy Verified 04/10/24 00:21 Review of Systems Const: Denies: fever(s), chills, body aches or change in appetite ENMT: Denies: throat pain or dental pain Card: Denies: chest pain Resp: Denies: dyspnea GI: Reports: abdominal pain; Denies: nausea, vomiting or diarrhea : Denies: dysuria Musc: Denies: neck pain or back pain Skin/Breast: Denies: rash Neuro: Denies: headache(s) PFSH ED PFSH: Family History Grandmother Stroke maternal Family/Other Breast cancer maternal great aunt, 23 and again at 32 Colon cancer maternal great aunt, 23 Denies family history of Ovarian cancer Diabetes Clotting disorder Heart disease Hyperlipidemia Anesthesia complication Bleeding disorder Hypertension Uterine cancer Thyroid disease Social History Smoking and tobacco/nicotine status: never used tobacco/nicotine Alcohol intake: never Substance/Drug Use: never Physical Exam Const: COMMON NORMALS: no acute distress, patient oriented x3 and healthy a ppearing HENMT: COMMON NORMALS: normocephalic and atraumatic HEAD & SCALP: normocephalic and atraumatic Eye: COMMON NORMALS: conjunctivae normal CONJUNCTIVA: Yes conjunctivae normal Neck/C-Spine: COMMON NORMALS: full ROM and supple Chest: COMMONS NORMALS: normal inspection of the chest Resp: COMMON NORMALS: normal respiratory effort Cardio: COMMON NORMALS: regular rate, regular rhythm and No murmurs present (Cardio) RATE: regular rate RHYTHM: regular rhythm GI: COMMON NORMALS: Normal to inspection, nondistended, normoactive bowel sounds present, Soft to palpation, non-tender and no masses PALPATION: Yes Soft to palpation Extremity: COMMON NORMALS: normal to inspection and full ROM Neuro: COMMON NORMALS: patient oriented x3, moves all extremities and no focal motor deficits Psych: COMMON NORMALS: mental status grossly normal, Normal thought process present and cooperative THOUGHT PROCESS: Normal thought process present Skin: COMMON NORMALS: no rashes or lesions noted and no wounds GENERAL SKIN EXAM: no rashes or lesions noted Course Vital Signs: Vital signs: Vital Signs Pulse Rate 84 07/03/24 05:12 Respiratory Rate 16 07/03/24 05:12 Blood Pressure 117/76 07/03/24 05:12 Pulse Oximetry 100 07/03/24 05:12 Oxygen Delivery Me thod Room Air 07/03/24 05:12 MDM - Abdominal Pain Medical Decision Making Patient presents with abdominal pain exam here is benign she had a full workup including CT scan tonight that was negative she has no signs appendicitis or cholecystitis she stable for discharge follow-up with PCP return if worsening Medical Records I reviewed the patient's medical records. Lab Data I reviewed the patient's lab results. No radiology studies performed this visit Discharge Plan Discharge Patient Disposition: Home Clinical Impression: Abdominal pain Condition: Stable Prescriptions: No Action ibuprofen 800 mg tablet 800 mg PO TID PRN (Reason: pain) Qty: 60 0RF Colace 100 mg capsule 100 mg PO BID Qty: 60 0RF Iron (ferrous sulfate) 325 mg (65 mg iron) tablet 325 mg PO BID Qty: 60 0RF acetaminophen 325 mg capsule 325 mg PO Q4H PRN (Reason: fever or pain) Qty: 60 0RF prenat.vits,cruz,[id number] Tablet 1 tab PO DAILY Qty: 30 2RF ondansetron 4 mg tablet,disintegrating 4 mg PO Q8H PRN (Reason: nausea and vomiting) Qty: 15 0RF dicyclomine 10 mg capsule 10 mg PO TID PRN (Reason: abdominal pain) Qty: 20 0RF ondansetron 4 mg tablet,disintegrating 4 mg PO Q6H PRN (Reason: nausea and vomiting) Qty: 14 0RF Discharge Orders: Discharge ED (Routine); Ordered 07/03/24 Ordered By: Franklin Hummel Referrals: Hipolito Russell DO [Primary Care Provider] - 4-7 days Discharge Diet: Advance as tolerated Discharge Activity: Resume usual activity Patient Instructions: Abdominal Pain (ED) Print Language: Malay Coding Level of Care Code ED Surveying Technician for Darinel Hutson
[2024-07-03] MEDS: metoclopramide 5 mg/mL SDV 2 mL 10 MG IM (05:32)
[2024-07-03] MEDS: diphenhydrAMINE 50 mg/mL SDV 1mL IM (05:33)
== END 2024-07-03 06:05 | disposition home or self-care (01) ==
PROVIDERS: Emergency Provider Emergency Medicine; PCP Family Medicine
DX: R10.30 Lower abdominal pain, unspecified (principal)
CPT/HCPCS: 96372; 99284; J1200; J2765

== ENCOUNTER → 2024-08-15 12:00 | Outpatient (BNVA) | payer OTHER, SELFPAY | PROVIDERS: PCP Family Medicine; Referring Provider Nurse Practitioner Family; Visit Provider Surgery | DX: R10.9 Unspecified abdominal pain (principal); Z51.81 Encounter for therapeutic drug level monitoring; Z79.1 Long term (current) use of non-steroidal anti-inflammatories (NSAID) | CPT/HCPCS: 36415; 80048; 80076; 85025 ==

== ENCOUNTER 2024-09-04 05:53 | Day surgery (SDC) | payer OTHER, SELFPAY ==
[2024-09-04] VITALS (11 sets, daily range): BP systolic 86–116; BP diastolic 51–86; PULSE 66–114; RESP 14–18; TEMP 36.1–36.6; O2SAT 99–100; BMI 22.4
--- NOTE | 2024-09-04 05:57 | P.HPUD_ITS ---
Surgery/Procedure H&P Update DATE OF PROCEDURE: September 04, 2024 DATE H&P PERFORMED: 08/15/24 H&P UPDATE INFORMATION: I have reviewed H&P completed within last 30 days, I have examined patient prior to procedure, No changes to prior documentation, H&P is in [facility] EMR on date indicated and Risks and benefits of the procedure reviewed PLANNED PROCEDURE: Operation Date: 09/04/24 07:00 Proposed Procedures p Laparoscopic Cholecystectomy 98047 K80.20(Not Applicable) - Dario Noland MD
[2024-09-04] MEDS: sodium chloride 0.9% 1,000 ML 30 ML IV (06:27)
--- NOTE | 2024-09-04 06:33 | ANES.PREANE2 ---
Pre-Anesthetic Assessment Height/Weight: Height 5 ft 3 in Weight 127 lb Temp Pulse Resp BP Pulse Ox O2 Del Method 98 F 114 H 18 116/86 99 Room Air 09/04/24 06:11 09/04/24 06:11 09/04/24 06:11 09/04/24 06:11 09/04/24 06:11 09/04/24 06:11 Preop Diagnosis: Symptomatic cholelithiasis Operation Date: 09/04/24 07:00 Proposed Procedures p Laparoscopic Cholecystectomy 38312 K80.20(Not Applicable) - Dario Noland MD Was Beta Annemarie taken within 24 hours: N/A Was Clonidine taken within 24 hours: N/A Last intake: Intake Last Liquid Date 09/03/24 Last Liquid Time 22:00 Last Solid Date 09/03/24 Last Solid Time 19:00 Social No alcohol and No tobacco Exam alert, oriented x 3, clear to auscultation bilaterally and regular rate & rhythm Airway Submandibular: within normal limits Cervical ROM: within normal limits Mallampati: Class II Comments: Comments: Large front teeth, overbite Anesthetic Plan ASA status: 1 Anesthesia: General Other: No prior issues with anesthesia NPO since yesterday evening Denies any pulmonary or cardiac issues Labs reviewed acceptable for procedure Will obtain test prior METs greater than 4 Plan for general anesthesia Medications/Allergies Home Medications ?Medication ?Instructions ?Recorded ?Confirmed ?Last Taken ?Type No Known Home Medications 08/15/24 09/04/24 Unknown History Allergies Allergy/AdvReac Type Severity Reaction Status Date / Time No Known Allergies Allergy Verified 08/15/24 11:20 Current Medications Generic Name Dose Route Start Last Admin Trade Name Soren PRN Reason Stop Dose Admin Sodium Chloride 1,000 mls @ 30 mls/hr 09/04/24 06:00 09/04/24 06:27 Sodium Chloride 0.9% IV 09/05/24 05:59 30 mls/hr .Q24H JESSICA Administration PFSH Anesthesia Family History Grandmother Stroke maternal Family/Other Breast cancer maternal great aunt, 23 and again at 32 Colon cancer maternal great aunt, 23 Denies family history of Ovarian cancer Diabetes Clotting disorder Heart disease Hyperlipidemia Anesthesia complication Bleeding disorder Hypertension Uterine cancer Thyroid disease Social History Smoking and tobacco/nicotine status: never used tobacco/nicotine Alcohol intake: never Substance/Drug Use: never Data Anesthesia Cardiac Studies: No Data to Display
[2024-09-04] MEDS: ceFAZolin 2,000 mg SDV 2000 MG IVP (07:10)
[2024-09-04] MEDS: lidocaine-epi 1% PF 1:200,000 30 mL SDV INJECTION (07:39)
[2024-09-04] MEDS: BUPivacaine 0.25% INJ 30 mL INJECTION (07:40)
[2024-09-04 07:48] LABS: OR HCG Qualitative Urine Negative (Negative)
--- NOTE | 2024-09-04 08:23 | PM.OP ---
Operative Report Date of procedure: September 04, 2024 Pre-op diagnosis: Symptomatic cholelithiasis Post-op diagnosis: Same Post-op findings: Normal biliary anatomy, gallbladder filled with stones Procedure done: Laparoscopic cholecystectomy Specimens removed/disposition: Gallbladder and contents Surgeon: Dario Noland MD Senior Materials Scientist: CHUCK OR STaff Estimated blood loss: 5 Brief History: 23-year-old female who is here for laparoscopic cholecystectomy for symptomatic cholelithiasis. All risk and benefits were discussed and documented in my preop note Procedure: Patient was brought into the OR, she was placed in a supine position. General anesthesia was given. The abdomen was prepped and draped in the usual sterile fashion. A timeout was conducted. I accessed the abdomen via a 12 mm infraumbilical incision with an open technique, a Horvath trocar was fixed to the fascia with #0 Vicryl, initial pneumoperitoneum showed no evidence of visceral injury during entry. Additional 5 mm trocars were placed in the right upper quadrant right flank and epigastrium under direct visualization. The gallbladder was grasped from the fundus and retracted cephalad, adhesions from the omentum to the gallbladder were taken down bluntly. I then grasped the infundibulum and retracted in the inferolateral direction exposing the hepatocystic triangle. The peritoneum anterior to the hepatocystic triangle was opened with electrocautery, I carried this opening in the medial and lateral direction to the edges of the liver and then on the sides of the gallbladder to allow for better exposure. With careful blunt dissection as well as electrocautery I was able to encircle the cystic duct and artery, I also elevated lower third of the gallbladder from the liver bed, thus creating a critical view of safety. The cystic duct and artery were double clipped proximally and single clipped distally and transected. The gallbladder was removed from the liver bed using electrocautery. During removal a small hole was made in the posterior wall of the gallbladder, bile was aspirated and the area irrigated. The gallbladder was retrieved in an Endo Catch bag via the umbilical trocar site. The liver bed and clips were inspected the area was hemostatic, there was no evidence of bile leak the clips appeared to be in good position. The liver bed was irrigated and suctioned. The umbilical trocar was removed and umbilical trocar site was closed with a 0 Vicryl Dylan-Wil suture passer under direct visualization. The epigastrium right upper quadrant trocars were removed under direct visualization, the lright flank trocar was used to evacuate the pneumoperitoneum and subsequently removed. Local anesthesia was infiltrated. Hemostasis was achieved from the trocar sites. The wounds were closed in layers using #3-0 Vicryl for the subcutaneous tissue #4 Monocryl for the skin. At the end of the procedure all counts were correct, the patient tolerated well the procedure was transferred to the PACU in stable condition.
--- NOTE | 2024-09-04 09:50 | ANE.PACU2 ---
Inpatient post-anesthesia follow up: Airway intact: Yes Vital signs: Temperature 97 F Pulse Rate 71 Respiratory Rate 18 Blood Pressure 100/55 Pulse Oximetry 100 Oxygen Delivery Me thod Room Air Oxygen Flow Rate 8 Fraction of Inspir ed Oxygen Hydration adequate: Yes Nausea and vomiting: No Pain level: 1 Mental status: Baseline
== END 2024-09-04 09:50 | disposition home or self-care (01) ==
PROVIDERS: Student in an Organized Health Care Education/Training Program; PCP Family Medicine; Visit Provider Surgery
PROC: 0FT44ZZ Resection of Gallbladder, Percutaneous Endoscopic Approach (ICD-10-PCS; CPT 47562; principal; 2024-09-04 07:00)
DX: K80.10 Calculus of gallbladder with chronic cholecystitis without obstruction (principal)
CPT/HCPCS: 47562; 81025; 88304; A4216; J0690; J1100; J1171; J1885; J2250; J2405; J2704; J3010; J3490; J7030; J9999